=== PATIENT | male | born 1960 | race Two or more races ===

== ENCOUNTER 2016-11-07 22:09 | Emergency (ER) | payer MEDICARE, MEDICAID ==
[~2016-11-07] VITALS: Ht 172.7 cm; Wt 78.5 kg
[~2016-11-07 22:09] MED LIST: CALC667C PO; DOCU-94 PO; FOSI20TA PO; INSLANTI SC; METH500T6 PO; METO-158 PO; METO10TA3 PO; MULT-397 OR; OMEP20CA5 PO; TRAZ50TA2 PO; [UNRECOGNIZED DRUG - CODE] PO
[2016-11-07 22:15] VITALS: BP 173/63
[2016-11-07 23:09] LABS: Basophils # (auto) 0.1 uL; Basophils % (auto) 0.7 % (0.0-2.0); Eosinophils # (auto) 0.2 uL; Eosinophils % (auto) 2.6 % (0.0-7.0); Hematocrit 32.9 % (41.0-53.0); Hemoglobin 11.2 g/dL (13.5-17.5); Lymphocytes # (auto) 1.5 uL; Lymphocytes % (auto) 17.4 % (10.0-50.0); Mean Corpuscular Hemoglobin 31.2 pg (28.0-32.0); Mean Corpuscular Hgb Conc. 34.2 g/dL (32.0-36.0); Mean Corpuscular Volume 91.2 fL (80.0-100.0); Mean Platelet Volume 7.4 fL (7.4-10.4); Monocytes # (auto) 0.6 uL; Neutrophils # (auto) 6.1 uL; Neutrophils % (auto) 72.3 % (37.0-80.0); Platelet Count (auto) 246 10^3/uL (140-450); Red Cell Distribution Width 14.5 % (11.6-16.0); White Blood Cell 8.4 10^3/uL (4.4-10.8)
[2016-11-07 23:39] LABS: Albumin 3.7 g/dL (3.4-5.0); BUN/Creatinine Ratio 6.8; Bilirubin, Total 0.5 mg/dL (0.2-1.0); Calcium 8.5 mg/dL (8.5-10.1); Potassium 3.9 mmol/L (3.5-5.1); Total Protein 8.1 g/dL (6.4-8.2)
== END 2016-11-08 02:45 | disposition left against medical advice (07) ==
LOC: ER 22:16
DX: M79.602 Pain in left arm (principal); Z53.21 Procedure and treatment not carried out due to patient leaving prior to being seen by health care provider
CPT/HCPCS: 36415; 80053; 85025; 93971

== ENCOUNTER 2017-07-30 07:41 | Inpatient (IN) | payer MEDICARE, MEDICAID, OTHER ==
[~2017-07-30] VITALS: Ht 160 cm; Wt 104.8 kg
[~2017-07-30 07:41] MED LIST changes: +ASPI-231 PO; +B-COCAP23 PO; +CLON0.3T PO; +DOCU250C3 PO; +FOSI40TA2 PO; +OME20T PO; -OMEP20CA5 PO; +OMEP20CA74 PO; +[UNRECOGNIZED DRUG - CODE] PO
[2017-07-30 08:51] LABS: Basophils # (auto) 0.1 uL; Basophils % (auto) 0.6 % (0.0-2.0); Eosinophils # (auto) 0.1 uL; Eosinophils % (auto) 1.1 % (0.0-7.0); Hematocrit 34.7 % (41.0-53.0); Hemoglobin 11.5 g/dL (13.5-17.5); Lymphocytes % (auto) 7.5 % (10.0-50.0); Mean Corpuscular Hemoglobin 30.3 pg (28.0-32.0); Mean Corpuscular Hgb Conc. 33.2 g/dL (32.0-36.0); Mean Corpuscular Volume 91.2 fL (80.0-100.0); Monocytes # (auto) 0.7 uL; Monocytes % (auto) 5.1 % (0.0-12.0); Neutrophils # (auto) 10.9 uL; Neutrophils % (auto) 85.7 % (37.0-80.0); Nucleated Red Blood Cells % 0.1 %; Platelet Count (auto) 257 10^3/uL (140-450); Red Blood Cells 3.81 10^6/uL (4.5-5.90); Red Cell Distribution Width 15.7 % (11.8-14.3); White Blood Cell 12.8 10^3/uL (4.4-10.8)
[2017-07-30 09:02] LABS: Albumin 3.6 g/dL (3.4-5.0); Bilirubin, Total 0.6 mg/dL (0.2-1.0); Calcium 9.5 mg/dL (8.5-10.1); Magnesium 2.1 mg/dL (1.6-2.6); Potassium 3.6 mmol/L (3.5-5.1); Total Protein 9.2 g/dL (6.4-8.2)
[2017-07-30 09:24] LABS: BUN/Creatinine Ratio 5.4
[2017-07-30] MEDS ORDERED: SODIUM CHLORIDE 0.9% 1,000 ML IVB ONE (11:53)
[2017-07-30] MEDS ORDERED: ONDANSETRON HCL 4 MG/2 ML VIAL IV ONE (12:00)
[2017-07-30 12:35] LABS: Amylase 41 U/L (25-115); Lipase 118 U/L (73-393)
[2017-07-30 12:41] LABS: INR 1.1 (0.9-1.15); Partial Thromboplastin Time 27.8 sec (22.64-33.71)
[2017-07-30] MEDS ORDERED: hydrALAZINE HCL 20 MG/ML VL IV ONE (12:45)
[2017-07-30] MEDS ORDERED: PROMETHAZINE HCL 25 MG/ML 1ML IV PRN (15:00)
[2017-07-30] MEDS ORDERED: PANTOPRAZOLE 40 MG/10 ML VIAL IV ONE (15:00)
[2017-07-30] MEDS ORDERED: LACTULOSE 20Gm/30ML SOLN PO PRN (15:00)
[2017-07-30] MEDS ORDERED: DOCUSATE SOD 100 MG CAP PO PRN (15:00)
[2017-07-30] MEDS ORDERED: LORazepam 2MG/ML-1ML VIAL IV PRN (15:00)
[2017-07-30] MEDS ORDERED: MORPHINE SULFATE 4 MG/ML SYR/VIAL IV PRN (15:00)
[2017-07-30] MEDS ORDERED: MORPHINE SULF INJ 2 MG/ML SYRINGE 1ML IV PRN (15:00)
[2017-07-30] MEDS ORDERED: MORPHINE SULFATE 10 MG/ML INJ 1ML SDV IV PRN (15:00)
[2017-07-30] MEDS ORDERED: NITROGLYCERIN 0.4 MG SL TAB SL PRN (15:00)
[2017-07-30] MEDS ORDERED: METOPROLOL TARTRATE 25 MG TAB PO ONE (15:45)
[2017-07-30] MEDS ORDERED: cloNIDine HCL 0.1 MG TAB PO ONE (15:45)
[2017-07-30] MEDS ORDERED: NITROGLYCERIN 0.2MG/HR TOPICAL PATCH TD ONE (16:00)
[2017-07-30] MEDS ORDERED: FUROSEMIDE 40 MG/4 ML VIAL IV ONE (16:00)
[2017-07-30] MEDS ORDERED: ASPirin-EC 81 mg tab PO ONE (16:00)
[2017-07-30] MEDS: ACCU-CHEK COMFORT CURVE STRIP VI SCH ×3 (16:05→23:52)
[2017-07-30] MEDS ORDERED: FOSINOPRIL SODIUM 10 MG TAB PO ONE (16:15)
[2017-07-30] MEDS: InsuLIN REG 1unit/0.01ml Soln (100units/ml) SC SCH ×3 (16:22→23:52)
[2017-07-30] MEDS ORDERED: INSULIN LANTUS (GLARGINE) 1 /0.01ml (100units/ml) SC ONE (16:30)
[2017-07-30] MEDS: HYDROcodone-ACET 5/325MG TAB PO PRN (17:21)
[2017-07-30 18:34] VITALS: BP 139/73
[2017-07-30] MEDS ORDERED: INFLUENZA QUAD 2017-2018 0.5 ML SYRG IM ONE (18:45)
[2017-07-30 22:00] VITALS: BP 161/87
[2017-07-30] MEDS: DOCUSATE CALCIUM 240 MG CAP PO SCH (22:00)
[2017-07-30] MEDS: METOPROLOL TARTRATE 50 MG TAB PO SCH (22:00)
[2017-07-30] MEDS: traZODone HCL 50 MG TAB PO SCH (22:14)
[2017-07-30] MEDS: CALCIUM ACETATE 667 MG CAP PO SCH (22:14)
[2017-07-30] MEDS: cloNIDine HCL 0.1 MG TAB PO SCH (22:14)
[2017-07-30] MEDS: FOSINOPRIL SODIUM 10 MG TAB PO SCH (22:14)
[2017-07-30] MEDS: METOCLOPRAMIDE HCL 10 MG TAB PO SCH (22:15)
[2017-07-30] MEDS: DEXTROSE (50%) 50ML SYRG IV PRN (23:20)
[2017-07-31] MEDS: ACCU-CHEK COMFORT CURVE STRIP VI SCH ×5 (03:55→21:34)
[2017-07-31] MEDS: InsuLIN REG 1unit/0.01ml Soln (100units/ml) SC SCH ×5 (03:55→21:34)
[2017-07-31] MEDS: DEXTROSE (50%) 50ML SYRG IV PRN ×2 (04:00→08:27)
[2017-07-31 05:00] VITALS: BP 94/47
[2017-07-31] MEDS: CALCIUM ACETATE 667 MG CAP PO SCH ×3 (05:56→21:29)
[2017-07-31] MEDS: METOCLOPRAMIDE HCL 10 MG TAB PO SCH ×3 (05:57→21:29)
[2017-07-31] MEDS ORDERED: D5W/SOD CHLO 0.9% 1,000 ML IV SCH (06:00)
[2017-07-31 06:20] LABS: Basophils # (auto) 0 uL; Basophils % (auto) 0.5 % (0.0-2.0); Eosinophils # (auto) 0.1 uL; Eosinophils % (auto) 1.1 % (0.0-7.0); Hemoglobin 9.5 g/dL (13.5-17.5); Lymphocytes # (auto) 0.9 uL; Lymphocytes % (auto) 9.4 % (10.0-50.0); Mean Corpuscular Hemoglobin 30.4 pg (28.0-32.0); Mean Corpuscular Hgb Conc. 33.7 g/dL (32.0-36.0); Mean Corpuscular Volume 90.3 fL (80.0-100.0); Monocytes # (auto) 0.6 uL; Monocytes % (auto) 6.9 % (0.0-12.0); Neutrophils # (auto) 7.5 uL; Neutrophils % (auto) 82.1 % (37.0-80.0); Platelet Count (auto) 219 10^3/uL (140-450); Red Cell Distribution Width 15.6 % (11.8-14.3); White Blood Cell 9.1 10^3/uL (4.4-10.8)
[2017-07-31 07:11] LABS: Albumin 2.8 g/dL (3.4-5.0); BUN/Creatinine Ratio 5.5; Bilirubin, Total 0.4 mg/dL (0.2-1.0); Calcium 8.6 mg/dL (8.5-10.1); Total Protein 7.3 g/dL (6.4-8.2)
[2017-07-31 07:14] LABS: Potassium 2.8 mmol/L (3.5-5.1)
[2017-07-31 09:00] VITALS: BP 152/72
[2017-07-31] MEDS: HYDROcodone-ACET 5/325MG TAB PO PRN ×3 (09:12→22:16)
[2017-07-31] MEDS: DOCUSATE CALCIUM 240 MG CAP PO SCH ×2 (09:14→21:29)
[2017-07-31] MEDS: ASPirin-EC 81 mg tab PO SCH (09:14)
[2017-07-31] MEDS: FUROSEMIDE 40 MG/4 ML VIAL IV SCH (09:14)
[2017-07-31] MEDS: ENOXAPARIN SOD 30 MG/0.3 ML SYRINGE SC SCH (09:15)
[2017-07-31] MEDS: NITROGLYCERIN 0.2MG/HR TOPICAL PATCH TD SCH (09:15)
[2017-07-31] MEDS: INSULIN LANTUS (GLARGINE) 1 /0.01ml (100units/ml) SC SCH (10:00)
[2017-07-31] MEDS: FOSINOPRIL SODIUM 10 MG TAB PO SCH ×2 (10:00→21:41)
[2017-07-31] MEDS ORDERED: ENALAPRIL MALEATE 10 MG TAB PO SCH (10:00)
[2017-07-31] MEDS: METOPROLOL TARTRATE 50 MG TAB PO SCH ×2 (10:00→22:00)
[2017-07-31] MEDS ORDERED: PANTOPRAZOLE 40 MG/10 ML VIAL IV SCH (10:00)
[2017-07-31] MEDS: cloNIDine HCL 0.1 MG TAB PO SCH ×2 (10:00→21:30)
[2017-07-31] MEDS ORDERED: POTASSIUM CHLORIDE 40 MEQ, LIDOCAINE 1% (LOCAL ANESTH.) 4 ML in SODIUM CHL 0.9% 100 ML IV ONE (11:15)
[2017-07-31] MEDS: Boost Glucose Control 8 Ounces PO SCH ×2 (12:00→18:09)
[2017-07-31 13:00] VITALS: BP 131/77
[2017-07-31 17:00] VITALS: BP 133/64
[2017-07-31 17:25] LABS: BUN/Creatinine Ratio 5.4; Calcium 8.5 mg/dL (8.5-10.1); Potassium 4.1 mmol/L (3.5-5.1)
[2017-07-31] MEDS: PANTOPRAZOLE 40 MG TAB PO SCH (21:29)
[2017-07-31] MEDS: traZODone HCL 50 MG TAB PO SCH (21:29)
[2017-07-31 22:00] VITALS: BP 140/70
[2017-08-01] MEDS: ACCU-CHEK COMFORT CURVE STRIP VI SCH ×6 (00:54→20:55)
[2017-08-01] MEDS: HYDROcodone-ACET 5/325MG TAB PO PRN ×2 (02:48→21:57)
[2017-08-01] MEDS: InsuLIN REG 1unit/0.01ml Soln (100units/ml) SC SCH ×6 (04:00→20:56)
[2017-08-01 05:00] VITALS: BP 140/71
[2017-08-01] MEDS ORDERED: MORPHINE SULF INJ 2 MG/ML SYRINGE 1ML ONE (05:27)
[2017-08-01 05:50] LABS: Basophils # (auto) 0.1 uL; Basophils % (auto) 1.1 % (0.0-2.0); Eosinophils # (auto) 0.4 uL; Eosinophils % (auto) 3.8 % (0.0-7.0); Hemoglobin 9.9 g/dL (13.5-17.5); Lymphocytes # (auto) 1.1 uL; Lymphocytes % (auto) 11.9 % (10.0-50.0); Mean Corpuscular Hemoglobin 31.1 pg (28.0-32.0); Mean Corpuscular Hgb Conc. 34.2 g/dL (32.0-36.0); Mean Corpuscular Volume 90.9 fL (80.0-100.0); Monocytes # (auto) 0.8 uL; Monocytes % (auto) 8.8 % (0.0-12.0); Neutrophils # (auto) 6.9 uL; Neutrophils % (auto) 74.4 % (37.0-80.0); Platelet Count (auto) 239 10^3/uL (140-450); Red Blood Cells 3.19 10^6/uL (4.5-5.90); Red Cell Distribution Width 15.8 % (11.8-14.3); White Blood Cell 9.2 10^3/uL (4.4-10.8)
[2017-08-01] MEDS: METOCLOPRAMIDE HCL 10 MG TAB PO SCH ×3 (06:07→20:54)
[2017-08-01] MEDS: CALCIUM ACETATE 667 MG CAP PO SCH ×3 (06:07→21:42)
[2017-08-01 06:33] LABS: Albumin 2.9 g/dL (3.4-5.0); BUN/Creatinine Ratio 5.4; Bilirubin, Total 0.5 mg/dL (0.2-1.0); Calcium 8.4 mg/dL (8.5-10.1); Potassium 4.1 mmol/L (3.5-5.1); Total Protein 7.7 g/dL (6.4-8.2)
[2017-08-01] MEDS: Boost Glucose Control 8 Ounces PO SCH ×3 (08:00→18:00)
[2017-08-01 09:00] VITALS: BP 139/67
[2017-08-01] MEDS: cloNIDine HCL 0.1 MG TAB PO SCH ×2 (10:00→20:52)
[2017-08-01] MEDS: FOSINOPRIL SODIUM 10 MG TAB PO SCH ×2 (10:00→21:23)
[2017-08-01] MEDS: FUROSEMIDE 40 MG/4 ML VIAL IV SCH (10:00)
[2017-08-01] MEDS: ENOXAPARIN SOD 30 MG/0.3 ML SYRINGE SC SCH (10:00)
[2017-08-01] MEDS: METOPROLOL TARTRATE 50 MG TAB PO SCH ×2 (10:00→20:54)
[2017-08-01] MEDS: ASPirin-EC 81 mg tab PO SCH (10:00)
[2017-08-01] MEDS: NITROGLYCERIN 0.2MG/HR TOPICAL PATCH TD SCH (10:00)
[2017-08-01] MEDS: PANTOPRAZOLE 40 MG TAB PO SCH ×2 (10:00→21:25)
[2017-08-01] MEDS: DOCUSATE CALCIUM 240 MG CAP PO SCH ×3 (10:00→20:54)
[2017-08-01] MEDS: INSULIN LANTUS (GLARGINE) 1 /0.01ml (100units/ml) SC SCH (10:00)
[2017-08-01] MEDS ORDERED: ADENOSINE 87 MG in GIVE UN-DILUTED 0 ML IV ONE (11:15)
[2017-08-01 12:24] VITALS: BP 140/94
[2017-08-01] MEDS ORDERED: ONDANSETRON HCL 4 MG/2 ML VIAL ONE (13:02)
[2017-08-01] MEDS ORDERED: diphenhdrAMINE HCL 50 MG/1 ML VL IV ONE (16:15)
[2017-08-01 17:00] VITALS: BP 170/85
[2017-08-01] MEDS ORDERED: LACTULOSE 20Gm/30ML SOLN PO PRN (17:30)
[2017-08-01] MEDS: traZODone HCL 50 MG TAB PO SCH (20:54)
[2017-08-01 22:00] VITALS: BP 149/73
[2017-08-02] MEDS: ACCU-CHEK COMFORT CURVE STRIP VI SCH ×6 (02:39→20:00)
[2017-08-02] MEDS: InsuLIN REG 1unit/0.01ml Soln (100units/ml) SC SCH ×6 (04:00→20:00)
[2017-08-02 05:00] VITALS: BP 174/77
[2017-08-02] MEDS: CALCIUM ACETATE 667 MG CAP PO SCH ×3 (05:41→21:49)
[2017-08-02] MEDS: METOCLOPRAMIDE HCL 10 MG TAB PO SCH ×3 (05:41→21:50)
[2017-08-02 07:15] LABS: Basophils # (auto) 0.1 uL; Basophils % (auto) 1.1 % (0.0-2.0); Eosinophils # (auto) 0.2 uL; Eosinophils % (auto) 2.1 % (0.0-7.0); Hemoglobin 10.5 g/dL (13.5-17.5); Lymphocytes # (auto) 0.8 uL; Lymphocytes % (auto) 8.1 % (10.0-50.0); Mean Corpuscular Hemoglobin 30.2 pg (28.0-32.0); Mean Corpuscular Hgb Conc. 32.9 g/dL (32.0-36.0); Mean Corpuscular Volume 91.6 fL (80.0-100.0); Monocytes # (auto) 0.7 uL; Monocytes % (auto) 7.5 % (0.0-12.0); Neutrophils # (auto) 7.9 uL; Neutrophils % (auto) 81.2 % (37.0-80.0); Nucleated Red Blood Cells % 0.1 %; Platelet Count (auto) 297 10^3/uL (140-450); Red Cell Distribution Width 15.8 % (11.8-14.3); White Blood Cell 9.7 10^3/uL (4.4-10.8)
[2017-08-02 07:36] LABS: Albumin 3.3 g/dL (3.4-5.0); BUN/Creatinine Ratio 4.7; Bilirubin, Total 0.7 mg/dL (0.2-1.0); Calcium 8.6 mg/dL (8.5-10.1); Potassium 4.7 mmol/L (3.5-5.1); Total Protein 8.7 g/dL (6.4-8.2)
[2017-08-02 08:00] VITALS: BP 135/95
[2017-08-02] MEDS: Boost Glucose Control 8 Ounces PO SCH ×3 (09:36→18:00)
[2017-08-02] MEDS: FOSINOPRIL SODIUM 10 MG TAB PO SCH ×2 (09:38→21:49)
[2017-08-02] MEDS: FUROSEMIDE 40 MG/4 ML VIAL IV SCH (09:39)
[2017-08-02] MEDS: DOCUSATE CALCIUM 240 MG CAP PO SCH (09:39)
[2017-08-02] MEDS: METOPROLOL TARTRATE 50 MG TAB PO SCH ×2 (09:40→21:48)
[2017-08-02] MEDS: cloNIDine HCL 0.1 MG TAB PO SCH ×2 (09:40→21:47)
[2017-08-02] MEDS: PANTOPRAZOLE 40 MG TAB PO SCH ×2 (09:40→21:50)
[2017-08-02] MEDS: NITROGLYCERIN 0.2MG/HR TOPICAL PATCH TD SCH (09:41)
[2017-08-02] MEDS: ENOXAPARIN SOD 30 MG/0.3 ML SYRINGE SC SCH (09:41)
[2017-08-02] MEDS: ASPirin-EC 81 mg tab PO SCH (09:41)
[2017-08-02] MEDS: HYDROcodone-ACET 5/325MG TAB PO PRN ×2 (09:58→20:00)
[2017-08-02] MEDS: INSULIN LANTUS (GLARGINE) 1 /0.01ml (100units/ml) SC SCH (10:03)
[2017-08-02 12:40] VITALS: BP 136/79
[2017-08-02] MEDS ORDERED: SODIUM CHLORIDE LOCK 10 ML ONE (13:26)
[2017-08-02] MEDS ORDERED: LIDOCAINE VISCOUS 2% 15ML UD ONE (13:26)
[2017-08-02] MEDS ORDERED: diphenhdrAMINE HCL 50 MG/1 ML VL ONE (13:26)
[2017-08-02] MEDS ORDERED: MIDAZOLAM HCL 5 MG/ML-1ML VIAL ONE (13:26)
[2017-08-02] MEDS ORDERED: fentaNYL CITRATE 100 MCG/2 ML VL ONE (13:27)
[2017-08-02] MEDS ORDERED: LACTULOSE 20Gm/30ML SOLN PO PRN (14:00)
[2017-08-02 20:00] VITALS: BP 168/87
[2017-08-02] MEDS: traZODone HCL 50 MG TAB PO SCH (21:48)
[2017-08-02 21:58] VITALS: BP 168/87
[2017-08-03] VITALS (8 sets, daily range): BP systolic 137–196; BP diastolic 77–97
[2017-08-03] MEDS: HYDROcodone-ACET 5/325MG TAB PO PRN ×3 (00:29→19:52)
[2017-08-03] MEDS: ACCU-CHEK COMFORT CURVE STRIP VI SCH ×7 (00:29→23:42)
[2017-08-03] MEDS: InsuLIN REG 1unit/0.01ml Soln (100units/ml) SC SCH ×7 (04:00→23:43)
[2017-08-03] MEDS: METOCLOPRAMIDE HCL 10 MG TAB PO SCH ×3 (05:41→22:21)
[2017-08-03] MEDS: CALCIUM ACETATE 667 MG CAP PO SCH ×3 (05:41→22:20)
[2017-08-03 07:13] LABS: Basophils # (auto) 0.1 uL; Eosinophils # (auto) 0.2 uL; Eosinophils % (auto) 3.4 % (0.0-7.0); Hemoglobin 10.3 g/dL (13.5-17.5); Lymphocytes # (auto) 1.4 uL; Lymphocytes % (auto) 19.8 % (10.0-50.0); Mean Corpuscular Hemoglobin 30.1 pg (28.0-32.0); Mean Corpuscular Hgb Conc. 33.3 g/dL (32.0-36.0); Mean Corpuscular Volume 90.6 fL (80.0-100.0); Monocytes # (auto) 0.7 uL; Monocytes % (auto) 10.3 % (0.0-12.0); Neutrophils # (auto) 4.7 uL; Neutrophils % (auto) 65.5 % (37.0-80.0); Platelet Count (auto) 315 10^3/uL (140-450); Red Blood Cells 3.42 10^6/uL (4.5-5.90); Red Cell Distribution Width 15.8 % (11.8-14.3); White Blood Cell 7.2 10^3/uL (4.4-10.8)
[2017-08-03 07:42] LABS: Albumin 3.1 g/dL (3.4-5.0); BUN/Creatinine Ratio 5.3; Bilirubin, Total 0.6 mg/dL (0.2-1.0); Calcium 9.2 mg/dL (8.5-10.1); Potassium 4.4 mmol/L (3.5-5.1); Total Protein 8.3 g/dL (6.4-8.2)
[2017-08-03] MEDS: Boost Glucose Control 8 Ounces PO SCH ×2 (09:11→13:07)
[2017-08-03] MEDS: PANTOPRAZOLE 40 MG TAB PO SCH ×2 (09:21→22:20)
[2017-08-03] MEDS: ASPirin-EC 81 mg tab PO SCH (09:21)
[2017-08-03] MEDS: FUROSEMIDE 40 MG/4 ML VIAL IV SCH (09:21)
[2017-08-03] MEDS: INSULIN LANTUS (GLARGINE) 1 /0.01ml (100units/ml) SC SCH (09:23)
[2017-08-03] MEDS: ENOXAPARIN SOD 30 MG/0.3 ML SYRINGE SC SCH (09:28)
[2017-08-03] MEDS: FOSINOPRIL SODIUM 10 MG TAB PO SCH ×3 (09:28→22:20)
[2017-08-03] MEDS: METOPROLOL TARTRATE 50 MG TAB PO SCH ×3 (09:28→22:20)
[2017-08-03] MEDS: cloNIDine HCL 0.1 MG TAB PO SCH ×3 (09:29→22:19)
[2017-08-03] MEDS: DOCUSATE CALCIUM 240 MG CAP PO SCH ×2 (09:29→22:21)
[2017-08-03] MEDS ORDERED: EPOETIN ALFA 10,000 UNIT/1 ML VIAL IV ONE (09:45)
[2017-08-03] MEDS: NITROGLYCERIN 0.2MG/HR TOPICAL PATCH TD SCH (10:00)
[2017-08-03] MEDS ORDERED: diphenhdrAMINE HCL 50 MG/1 ML VL IV ONE (10:15)
[2017-08-03] MEDS: NIFEdipine ER 30 MG TAB PO SCH (16:06)
[2017-08-03] MEDS ORDERED: MORPHINE SULFATE 4 MG/ML SYR/VIAL IV PRN (20:15)
[2017-08-03] MEDS: traZODone HCL 50 MG TAB PO SCH (22:19)
[2017-08-04] MEDS: InsuLIN REG 1unit/0.01ml Soln (100units/ml) SC SCH ×3 (03:59→11:38)
[2017-08-04] MEDS: ACCU-CHEK COMFORT CURVE STRIP VI SCH ×3 (04:00→11:38)
[2017-08-04 05:00] VITALS: BP 133/68
[2017-08-04] MEDS: CALCIUM ACETATE 667 MG CAP PO SCH (05:41)
[2017-08-04] MEDS: METOCLOPRAMIDE HCL 10 MG TAB PO SCH (05:41)
[2017-08-04 06:22] LABS: Basophils # (auto) 0.2 uL; Basophils % (auto) 2.9 % (0.0-2.0); Eosinophils # (auto) 0.3 uL; Eosinophils % (auto) 3.9 % (0.0-7.0); Hematocrit 30.2 % (41.0-53.0); Lymphocytes % (auto) 14.3 % (10.0-50.0); Mean Corpuscular Hemoglobin 30.1 pg (28.0-32.0); Mean Corpuscular Hgb Conc. 33.1 g/dL (32.0-36.0); Mean Corpuscular Volume 90.9 fL (80.0-100.0); Monocytes # (auto) 0.6 uL; Monocytes % (auto) 8.7 % (0.0-12.0); Neutrophils % (auto) 70.2 % (37.0-80.0); Platelet Count (auto) 295 10^3/uL (140-450); Red Blood Cells 3.32 10^6/uL (4.5-5.90); Red Cell Distribution Width 15.8 % (11.8-14.3); White Blood Cell 7.1 10^3/uL (4.4-10.8)
[2017-08-04 06:39] LABS: BUN/Creatinine Ratio 5.5; Calcium 8.4 mg/dL (8.5-10.1); Potassium 4.3 mmol/L (3.5-5.1)
[2017-08-04 08:00] VITALS: BP 154/78
[2017-08-04] MEDS ORDERED: NIF30XLT PO (08:38)
[2017-08-04 09:00] VITALS: BP 154/78
[2017-08-04] MEDS: DOCUSATE CALCIUM 240 MG CAP PO SCH (09:40)
[2017-08-04] MEDS: METOPROLOL TARTRATE 50 MG TAB PO SCH (09:40)
[2017-08-04] MEDS: NIFEdipine ER 30 MG TAB PO SCH (09:41)
[2017-08-04] MEDS: cloNIDine HCL 0.1 MG TAB PO SCH (09:42)
[2017-08-04] MEDS: ENOXAPARIN SOD 30 MG/0.3 ML SYRINGE SC SCH (09:42)
[2017-08-04] MEDS: ASPirin-EC 81 mg tab PO SCH (09:42)
[2017-08-04] MEDS: PANTOPRAZOLE 40 MG TAB PO SCH (09:42)
[2017-08-04] MEDS: FOSINOPRIL SODIUM 10 MG TAB PO SCH (09:43)
[2017-08-04] MEDS: INSULIN LANTUS (GLARGINE) 1 /0.01ml (100units/ml) SC SCH (09:48)
[2017-08-04] MEDS: NITROGLYCERIN 0.2MG/HR TOPICAL PATCH TD SCH (10:00)
[2017-08-04 10:23] VITALS: BP 154/78
[2017-08-04 10:46] VITALS: BP 154/78
[2017-08-04] MEDS: FUROSEMIDE 40 MG/4 ML VIAL IV SCH (11:07)
[2017-08-04 12:00] VITALS: BP 155/71
== END 2017-08-04 12:40 | disposition home health service (06) | DRG 291 ==
LOC: EDBD 07:41 → ER 07:41 → TELE-WESTW 07:42
PROVIDERS: ADMIT Internal Medicine; ATTEND Internal Medicine
PROC: 5A1D70Z Performance of Urinary Filtration, Intermittent, Less than 6 Hours Per Day (ICD-10-PCS; 2017-08-01)
PROC: 0DB68ZX Excision of Stomach, Via Natural or Artificial Opening Endoscopic, Diagnostic (ICD-10-PCS; principal; 2017-08-02 13:32)
PROC: 5A1D70Z Performance of Urinary Filtration, Intermittent, Less than 6 Hours Per Day (ICD-10-PCS; 2017-08-03)
DX: I13.2 Hypertensive heart and chronic kidney disease with heart failure and with stage 5 chronic kidney disease, or end stage renal disease (principal); N18.6 End stage renal disease; E11.21 Type 2 diabetes mellitus with diabetic nephropathy; E44.0 Moderate protein-calorie malnutrition; E11.65 Type 2 diabetes mellitus with hyperglycemia; I50.43 Acute on chronic combined systolic (congestive) and diastolic (congestive) heart failure; E87.1 Hypo-osmolality and hyponatremia; Z68.41 Body mass index [BMI] 40.0-44.9, adult; K29.70 Gastritis, unspecified, without bleeding; K59.00 Constipation, unspecified; E11.22 Type 2 diabetes mellitus with diabetic chronic kidney disease; E87.6 Hypokalemia; D63.1 Anemia in chronic kidney disease; E78.5 Hyperlipidemia, unspecified; F32.9 Major depressive disorder, single episode, unspecified; E66.9 Obesity, unspecified; R74.8 Abnormal levels of other serum enzymes; F41.9 Anxiety disorder, unspecified; I50.9 Heart failure, unspecified; M19.90 Unspecified osteoarthritis, unspecified site; I16.0 Hypertensive urgency; D72.829 Elevated white blood cell count, unspecified; I70.8 Atherosclerosis of other arteries; K57.30 Diverticulosis of large intestine without perforation or abscess without bleeding; Z80.1 Family history of malignant neoplasm of trachea, bronchus and lung; Z82.49 Family history of ischemic heart disease and other diseases of the circulatory system; Z83.3 Family history of diabetes mellitus; Z90.49 Acquired absence of other specified parts of digestive tract; Z91.81 History of falling; Z99.2 Dependence on renal dialysis; Z88.2 Allergy status to sulfonamides; Z88.8 Allergy status to other drugs, medicaments and biological substances; Z79.82 Long term (current) use of aspirin; Z79.899 Other long term (current) drug therapy; Z79.4 Long term (current) use of insulin
CPT/HCPCS: 36415; 43239; 71045; 74176; 80048; 80053; 80061; 82150; 82550; 82962; 83036; 83690; 83735; 83880; 84443; 84484; 85025; 85610; 85652; 85730; 86141; 87081; 90935; 93005; 93017; 93926; 94761; 96361; 96372; 96374; 96375; C9113; J0153; J0885; J1815; J2001; J2250; J2405; J7042

== ENCOUNTER 2017-09-11 02:20 | Inpatient (IN) | payer MEDICARE, MEDICAID, OTHER ==
[2017-09-10 22:00] VITALS: BP 136/68
[~2017-09-11] VITALS: Ht 177.8 cm; Wt 101.0 kg
[~2017-09-11 02:20] MED LIST changes: +NIF30XLT PO
[2017-09-11] MEDS ORDERED: ENALAPRILAT 1.25 MG/ML-1ML VIAL IV ONE ×2 (02:33→03:00)
[2017-09-11 04:34] LABS: Basophils # (auto) 0.1 uL; Basophils % (auto) 0.9 % (0.0-2.0); Eosinophils # (auto) 0 uL; Eosinophils % (auto) 0.4 % (0.0-7.0); Hematocrit 32.6 % (41.0-53.0); Hemoglobin 10.8 g/dL (13.5-17.5); Lymphocytes # (auto) 0.3 uL; Lymphocytes % (auto) 3.8 % (10.0-50.0); Mean Corpuscular Hemoglobin 29.5 pg (28.0-32.0); Mean Corpuscular Hgb Conc. 33.2 g/dL (32.0-36.0); Monocytes # (auto) 0.7 uL; Monocytes % (auto) 8.5 % (0.0-12.0); Neutrophils # (auto) 7.4 uL; Neutrophils % (auto) 86.4 % (37.0-80.0); Platelet Count (auto) 193 10^3/uL (140-450); Red Blood Cells 3.66 10^6/uL (4.5-5.90); Red Cell Distribution Width 16.8 % (11.8-14.3); White Blood Cell 8.5 10^3/uL (4.4-10.8)
[2017-09-11 04:54] LABS: INR 1.22 (0.9-1.15); Partial Thromboplastin Time 28.6 sec (22.64-33.71); Prothrombin Time 13.3 sec (9.37-12.3)
[2017-09-11 05:12] LABS: Albumin 3.4 g/dL (3.4-5.0); BUN/Creatinine Ratio 5.7; Bilirubin, Total 0.8 mg/dL (0.2-1.0); Calcium 8.8 mg/dL (8.5-10.1); Potassium 4.2 mmol/L (3.5-5.1); Total Protein 8.7 g/dL (6.4-8.2)
[2017-09-11] MEDS ORDERED: ACETAMINOPHEN 325 MG TAB PO PRN (05:30)
[2017-09-11] MEDS ORDERED: NITROGLYCERIN 0.4 MG SL TAB SL PRN (05:30)
[2017-09-11] MEDS ORDERED: MORPHINE SULFATE 4 MG/ML SYR/VIAL IV PRN (05:30)
[2017-09-11] MEDS ORDERED: DEXTROSE (50%) 50ML SYRG IV PRN (05:30)
[2017-09-11] MEDS: InsuLIN REG 1unit/0.01ml Soln (100units/ml) SC SCH ×4 (06:00→23:56)
[2017-09-11] MEDS: ACCU-CHEK COMFORT CURVE STRIP VI SCH ×4 (06:00→23:57)
[2017-09-11] MEDS: CALCIUM ACETATE 667 MG CAP PO SCH ×3 (08:00→18:56)
[2017-09-11] MEDS ORDERED: HEPARIN SODIUM (PORCINE) 5000 UNITS/ML 1ML VIAL ONE ×2 (09:26)
[2017-09-11] MEDS ORDERED: EPOETIN ALFA 10,000 UNIT/1 ML VIAL IV ONE (09:30)
[2017-09-11] MEDS: METOPROLOL TARTRATE 50 MG TAB PO SCH ×2 (10:00→21:18)
[2017-09-11] MEDS: NIFEdipine ER 30 MG TAB PO SCH (10:00)
[2017-09-11] MEDS: cloNIDine HCL 0.1 MG TAB PO SCH ×2 (10:00→21:19)
[2017-09-11] MEDS: PANTOPRAZOLE 40 MG TAB PO SCH (10:00)
[2017-09-11] MEDS: B-COMPLEX W/ C & FOLIC ACID(NEPHROVITE TAB) PO SCH (10:00)
[2017-09-11] MEDS: HEPARIN SODIUM (PORCINE) 5000 UNITS/ML 1ML VIAL SC SCH ×2 (10:00→21:19)
[2017-09-11 11:00] VITALS: BP 111/67
[2017-09-11 11:05] VITALS: BP 111/67
[2017-09-11 12:22] VITALS: BP 118/69
[2017-09-11] MEDS: HYDROcodone-ACET 5/325MG TAB PO PRN (17:23)
[2017-09-11] MEDS ORDERED: INFLUENZA QUAD 2017-2018 0.5 ML SYRG IM ONE (19:30)
[2017-09-11 22:00] VITALS: BP 136/68
[2017-09-12] VITALS (7 sets, daily range): BP systolic 117–146; BP diastolic 69–85
[2017-09-12] MEDS: HYDROcodone-ACET 5/325MG TAB PO PRN ×3 (01:30→19:08)
[2017-09-12 05:39] LABS: Basophils # (auto) 0.1 uL; Basophils % (auto) 1.1 % (0.0-2.0); Eosinophils # (auto) 0.1 uL; Eosinophils % (auto) 1.2 % (0.0-7.0); Hemoglobin 10.2 g/dL (13.5-17.5); Lymphocytes # (auto) 0.8 uL; Lymphocytes % (auto) 14.5 % (10.0-50.0); Mean Corpuscular Hemoglobin 30.2 pg (28.0-32.0); Monocytes # (auto) 0.5 uL; Monocytes % (auto) 9.4 % (0.0-12.0); Neutrophils # (auto) 4.1 uL; Neutrophils % (auto) 73.8 % (37.0-80.0); Platelet Count (auto) 181 10^3/uL (140-450); Red Blood Cells 3.37 10^6/uL (4.5-5.90); Red Cell Distribution Width 17.3 % (11.8-14.3); White Blood Cell 5.5 10^3/uL (4.4-10.8)
[2017-09-12 05:58] LABS: Calcium 8.6 mg/dL (8.5-10.1); Potassium 3.6 mmol/L (3.5-5.1)
[2017-09-12] MEDS: InsuLIN REG 1unit/0.01ml Soln (100units/ml) SC SCH ×4 (06:00→23:57)
[2017-09-12 06:02] LABS: Albumin 3.1 g/dL (3.4-5.0); BUN/Creatinine Ratio 5.1
[2017-09-12 06:04] LABS: Bilirubin, Total 0.7 mg/dL (0.2-1.0); Total Protein 7.9 g/dL (6.4-8.2)
[2017-09-12] MEDS: ACCU-CHEK COMFORT CURVE STRIP VI SCH ×4 (06:18→23:57)
[2017-09-12] MEDS: HEPARIN SODIUM (PORCINE) 5000 UNITS/ML 1ML VIAL SC SCH ×2 (10:00→21:27)
[2017-09-12] MEDS: B-COMPLEX W/ C & FOLIC ACID(NEPHROVITE TAB) PO SCH (10:40)
[2017-09-12] MEDS: PANTOPRAZOLE 40 MG TAB PO SCH (10:40)
[2017-09-12] MEDS: CALCIUM ACETATE 667 MG CAP PO SCH ×3 (10:40→19:07)
[2017-09-12] MEDS: METOPROLOL TARTRATE 50 MG TAB PO SCH ×2 (10:41→21:27)
[2017-09-12] MEDS: NIFEdipine ER 30 MG TAB PO SCH (10:42)
[2017-09-12] MEDS: cloNIDine HCL 0.1 MG TAB PO SCH ×2 (10:48→21:26)
[2017-09-12] MEDS: guaiFENesin-DM 100/10mg/5ml SYR PO PRN (19:08)
[2017-09-12] MEDS: TEMAZEPAM 15 MG CAP PO PRN (21:32)
[2017-09-13] MEDS: guaiFENesin-DM 100/10mg/5ml SYR PO PRN ×2 (03:19→20:17)
[2017-09-13] MEDS: HYDROcodone-ACET 5/325MG TAB PO PRN ×4 (05:04→22:12)
[2017-09-13 05:27] VITALS: BP 127/68
[2017-09-13] MEDS: ACCU-CHEK COMFORT CURVE STRIP VI SCH ×4 (05:31→23:51)
[2017-09-13] MEDS: InsuLIN REG 1unit/0.01ml Soln (100units/ml) SC SCH ×5 (05:31→23:51)
[2017-09-13] MEDS ORDERED: EPOETIN ALFA 10,000 UNIT/1 ML VIAL IV ONE (08:30)
[2017-09-13] MEDS: CALCIUM ACETATE 667 MG CAP PO SCH ×3 (08:52→18:24)
[2017-09-13 09:00] VITALS: BP 140/75
[2017-09-13] MEDS: HEPARIN SODIUM (PORCINE) 5000 UNITS/ML 1ML VIAL SC SCH ×2 (09:37→21:57)
[2017-09-13] MEDS: B-COMPLEX W/ C & FOLIC ACID(NEPHROVITE TAB) PO SCH ×2 (09:38→12:26)
[2017-09-13] MEDS ORDERED: diphenhdrAMINE HCL 50 MG/1 ML VL IV ONE (09:45)
[2017-09-13 12:18] LABS: Hematocrit 29.1 % (41.0-53.0); Hemoglobin 9.7 g/dL (13.5-17.5)
[2017-09-13] MEDS: PANTOPRAZOLE 40 MG TAB PO SCH (12:26)
[2017-09-13] MEDS: METOPROLOL TARTRATE 50 MG TAB PO SCH ×2 (12:29→21:56)
[2017-09-13] MEDS: NIFEdipine ER 30 MG TAB PO SCH (12:29)
[2017-09-13] MEDS: cloNIDine HCL 0.1 MG TAB PO SCH ×2 (12:30→21:56)
[2017-09-13 13:00] VITALS: BP 150/83
[2017-09-13 15:51] VITALS: BP 161/84
[2017-09-13 17:19] VITALS: BP 138/82
[2017-09-13] MEDS ORDERED: HEPARIN SODIUM (PORCINE) 5000 UNITS/ML 1ML VIAL ONE (21:51)
[2017-09-13 23:57] VITALS: BP 140/73
[2017-09-14 05:01] VITALS: BP 126/68
[2017-09-14] MEDS: ACCU-CHEK COMFORT CURVE STRIP VI SCH ×2 (05:38→12:35)
[2017-09-14] MEDS: InsuLIN REG 1unit/0.01ml Soln (100units/ml) SC SCH ×2 (05:38→12:35)
[2017-09-14] MEDS: CALCIUM ACETATE 667 MG CAP PO SCH ×3 (07:53→18:00)
[2017-09-14] MEDS: HYDROcodone-ACET 5/325MG TAB PO PRN (07:53)
[2017-09-14] MEDS: METOPROLOL TARTRATE 50 MG TAB PO SCH ×2 (10:00→21:43)
[2017-09-14] MEDS ORDERED: LEVOFLOXACIN 250 MG TAB PO SCH (10:00)
[2017-09-14] MEDS: HYDROcodone-ACET 10/325MG TAB PO PRN ×2 (10:03→13:32)
[2017-09-14] MEDS: B-COMPLEX W/ C & FOLIC ACID(NEPHROVITE TAB) PO SCH (10:03)
[2017-09-14] MEDS: PANTOPRAZOLE 40 MG TAB PO SCH (10:04)
[2017-09-14] MEDS: cloNIDine HCL 0.1 MG TAB PO SCH ×2 (10:04→21:43)
[2017-09-14] MEDS: MORPHINE SULFATE 4 MG/ML SYR/VIAL IV PRN ×2 (11:05→14:40)
[2017-09-14] MEDS: NIFEdipine ER 30 MG TAB PO SCH (12:38)
[2017-09-14] MEDS: HEPARIN SODIUM (PORCINE) 5000 UNITS/ML 1ML VIAL SC SCH (21:44)
[2017-09-14] MEDS: TEMAZEPAM 15 MG CAP PO PRN (21:56)
[2017-09-14 22:00] VITALS: BP 152/71
[2017-09-14 23:00] VITALS: BP 141/71
[2017-09-15] MEDS: ACCU-CHEK COMFORT CURVE STRIP VI SCH ×4 (00:01→18:21)
[2017-09-15] MEDS: InsuLIN REG 1unit/0.01ml Soln (100units/ml) SC SCH ×4 (00:02→18:00)
[2017-09-15 05:00] VITALS: BP 149/80
[2017-09-15] MEDS: CALCIUM ACETATE 667 MG CAP PO SCH ×3 (08:48→18:00)
[2017-09-15 09:00] VITALS: BP 157/81
[2017-09-15] MEDS: NIFEdipine ER 30 MG TAB PO SCH (10:00)
[2017-09-15] MEDS: cloNIDine HCL 0.1 MG TAB PO SCH (10:00)
[2017-09-15] MEDS: METOPROLOL TARTRATE 50 MG TAB PO SCH (10:00)
[2017-09-15] MEDS: HEPARIN SODIUM (PORCINE) 5000 UNITS/ML 1ML VIAL SC SCH (10:49)
[2017-09-15] MEDS: B-COMPLEX W/ C & FOLIC ACID(NEPHROVITE TAB) PO SCH (10:51)
[2017-09-15] MEDS: PANTOPRAZOLE 40 MG TAB PO SCH (10:51)
[2017-09-15] MEDS ORDERED: EPOETIN ALFA 10,000 UNIT/1 ML VIAL IV ONE (12:00)
[2017-09-15 13:00] VITALS: BP 162/83
[2017-09-15 16:00] VITALS: BP 177/86
[2017-09-15] MEDS ORDERED: LEVOFLOXACIN 250 MG TAB PO ONE (19:00)
[2017-09-15] MEDS ORDERED: diphenhdrAMINE HCL 50 MG/1 ML VL IV ONE (19:15)
[2017-09-15 22:00] VITALS: BP_SYST 121; BP_SYST 171; BP_DIAS 67; BP_DIAS 85
[2017-09-15 23:23] VITALS: BP 174/78
[2017-09-16] MEDS: TEMAZEPAM 15 MG CAP PO PRN ×2 (00:20→21:20)
[2017-09-16] MEDS: METOPROLOL TARTRATE 50 MG TAB PO SCH ×3 (00:20→21:23)
[2017-09-16] MEDS: cloNIDine HCL 0.1 MG TAB PO SCH ×3 (00:20→21:20)
[2017-09-16] MEDS: HEPARIN SODIUM (PORCINE) 5000 UNITS/ML 1ML VIAL SC SCH ×3 (00:23→21:19)
[2017-09-16] MEDS: ONDANSETRON HCL 4 MG/2 ML VIAL IV PRN ×4 (00:34→18:40)
[2017-09-16] MEDS: ACCU-CHEK COMFORT CURVE STRIP VI SCH ×4 (00:58→18:41)
[2017-09-16 05:00] VITALS: BP 149/83
[2017-09-16] MEDS: InsuLIN REG 1unit/0.01ml Soln (100units/ml) SC SCH ×4 (06:50→18:00)
[2017-09-16] MEDS: CALCIUM ACETATE 667 MG CAP PO SCH ×3 (08:19→18:40)
[2017-09-16 09:00] VITALS: BP 151/63
[2017-09-16] MEDS: B-COMPLEX W/ C & FOLIC ACID(NEPHROVITE TAB) PO SCH ×2 (10:00→10:18)
[2017-09-16] MEDS: PANTOPRAZOLE 40 MG TAB PO SCH (10:23)
[2017-09-16] MEDS: NIFEdipine ER 30 MG TAB PO SCH (10:23)
[2017-09-16] MEDS ORDERED: LOPERAMIDE HCL 2 MG CAP PO ONE (10:30)
[2017-09-16 13:00] VITALS: BP 182/86
[2017-09-16] MEDS ORDERED: SERTRALINE HCL 50 MG TAB PO ONE (13:15)
[2017-09-16 17:00] VITALS: BP 150/71
[2017-09-16] MEDS ORDERED: HEPARIN SODIUM (PORCINE) 5000 UNITS/ML 1ML VIAL ONE (21:10)
[2017-09-16 22:00] VITALS: BP 138/69
[2017-09-17] MEDS: ACCU-CHEK COMFORT CURVE STRIP VI SCH ×3 (00:28→11:31)
[2017-09-17 05:00] VITALS: BP 138/71
[2017-09-17] MEDS: InsuLIN REG 1unit/0.01ml Soln (100units/ml) SC SCH ×3 (05:43→11:42)
[2017-09-17 05:55] LABS: Basophils # (auto) 0 uL; Basophils % (auto) 0.8 % (0.0-2.0); Eosinophils # (auto) 0.1 uL; Eosinophils % (auto) 1.2 % (0.0-7.0); Hematocrit 31.5 % (41.0-53.0); Hemoglobin 10.6 g/dL (13.5-17.5); Lymphocytes # (auto) 1.4 uL; Lymphocytes % (auto) 24.7 % (10.0-50.0); Mean Corpuscular Hemoglobin 29.5 pg (28.0-32.0); Mean Corpuscular Hgb Conc. 33.6 g/dL (32.0-36.0); Mean Corpuscular Volume 87.7 fL (80.0-100.0); Monocytes # (auto) 0.6 uL; Monocytes % (auto) 10.1 % (0.0-12.0); Neutrophils # (auto) 3.5 uL; Neutrophils % (auto) 63.2 % (37.0-80.0); Nucleated Red Blood Cells % 0.1 %; Platelet Count (auto) 278 10^3/uL (140-450); Red Blood Cells 3.59 10^6/uL (4.5-5.90); Red Cell Distribution Width 16.6 % (11.8-14.3); White Blood Cell 5.5 10^3/uL (4.4-10.8)
[2017-09-17 06:12] LABS: Calcium 8.6 mg/dL (8.5-10.1); Potassium 4.5 mmol/L (3.5-5.1)
[2017-09-17] MEDS: CALCIUM ACETATE 667 MG CAP PO SCH ×2 (08:15→11:42)
[2017-09-17 09:00] VITALS: BP 140/74
[2017-09-17] MEDS: B-COMPLEX W/ C & FOLIC ACID(NEPHROVITE TAB) PO SCH (09:12)
[2017-09-17] MEDS: cloNIDine HCL 0.1 MG TAB PO SCH (09:13)
[2017-09-17] MEDS: PANTOPRAZOLE 40 MG TAB PO SCH (09:14)
[2017-09-17] MEDS: NIFEdipine ER 30 MG TAB PO SCH (09:15)
[2017-09-17] MEDS: METOPROLOL TARTRATE 50 MG TAB PO SCH (09:18)
[2017-09-17] MEDS: HEPARIN SODIUM (PORCINE) 5000 UNITS/ML 1ML VIAL SC SCH (09:23)
[2017-09-17] MEDS ORDERED: SERTRALINE HCL 50 MG TAB PO SCH (10:00)
[2017-09-17 13:00] VITALS: BP 127/61
[2017-09-18] MEDS ORDERED: EPOETIN ALFA 10,000 UNIT/1 ML VIAL IV ONE (12:00)
[2017-09-18] MEDS ORDERED: SODIUM CHL 0.9% 1000 ML BAG XX ONE (12:00)
== END 2017-09-17 13:55 | disposition home health service (06) | DRG 291 ==
LOC: EDBD 02:20 → ER 02:20 → TELE 02:21 → TELE-CENTR 16:27
PROVIDERS: ADMIT Nurse Practitioner; ATTEND Internal Medicine Pulmonary Disease
PROC: 5A1D70Z Performance of Urinary Filtration, Intermittent, Less than 6 Hours Per Day (ICD-10-PCS; principal; 2017-09-11)
PROC: 5A09357 Assistance with Respiratory Ventilation, Less than 24 Consecutive Hours, Continuous Positive Airway Pressure (ICD-10-PCS; 2017-09-11)
PROC: 5A09357 Assistance with Respiratory Ventilation, Less than 24 Consecutive Hours, Continuous Positive Airway Pressure (ICD-10-PCS; 2017-09-12)
PROC: 5A1D70Z Performance of Urinary Filtration, Intermittent, Less than 6 Hours Per Day (ICD-10-PCS; 2017-09-13)
DX: I13.2 Hypertensive heart and chronic kidney disease with heart failure and with stage 5 chronic kidney disease, or end stage renal disease (principal); N18.6 End stage renal disease; J96.01 Acute respiratory failure with hypoxia; J18.1 Lobar pneumonia, unspecified organism; E11.22 Type 2 diabetes mellitus with diabetic chronic kidney disease; I50.33 Acute on chronic diastolic (congestive) heart failure; E44.1 Mild protein-calorie malnutrition; E87.1 Hypo-osmolality and hyponatremia; D63.8 Anemia in other chronic diseases classified elsewhere; E11.65 Type 2 diabetes mellitus with hyperglycemia; E66.01 Morbid (severe) obesity due to excess calories; F41.9 Anxiety disorder, unspecified; Z80.1 Family history of malignant neoplasm of trachea, bronchus and lung; Z82.49 Family history of ischemic heart disease and other diseases of the circulatory system; Z99.2 Dependence on renal dialysis; Z83.3 Family history of diabetes mellitus; Z68.31 Body mass index [BMI] 31.0-31.9, adult; Z88.2 Allergy status to sulfonamides; Z88.1 Allergy status to other antibiotic agents; Z88.8 Allergy status to other drugs, medicaments and biological substances; Z23 Encounter for immunization; Z90.49 Acquired absence of other specified parts of digestive tract
CPT/HCPCS: 36415; 36600; 71045; 71046; 80048; 80053; 82805; 82962; 83735; 83880; 84484; 85014; 85018; 85025; 85610; 85730; 87081; 87493; 90935; 93005; 94660; 96374; 96375; 97116; 97163; 97530; 99291; J0885; J1642; J1815; J2405

== ENCOUNTER 2019-02-09 17:32 | Emergency (ER) | payer MEDICARE, MEDICAID, OTHER ==
[~2019-02-09] VITALS: Ht 167.6 cm; Wt 101.2 kg
[~2019-02-09 17:32] MED LIST changes: -FOSI20TA PO; +FOSI20TA3 PO; -FOSI40TA2 PO; +FOSI40TA4 PO; -NIF30XLT PO; +NIFE30TA77 PO
[2019-02-09 18:39] VITALS: BP 151/77
[2019-02-09] MEDS ORDERED: ACETAMINOPHEN/CODEINE#3 (300/30mg) TAB PO ONE (19:00)
[2019-02-09] MEDS ORDERED: DexAMETHasone SOD PHOS 10MG/1ML VIAL INJ IM ONE (19:00)
== END 2019-02-09 19:16 | disposition home or self-care (01) ==
LOC: ER 17:43
DX: S80.212A Abrasion, left knee, initial encounter (principal); S80.211A Abrasion, right knee, initial encounter; I13.2 Hypertensive heart and chronic kidney disease with heart failure and with stage 5 chronic kidney disease, or end stage renal disease; E11.22 Type 2 diabetes mellitus with diabetic chronic kidney disease; N18.6 End stage renal disease; I50.9 Heart failure, unspecified; Z90.49 Acquired absence of other specified parts of digestive tract; Z88.2 Allergy status to sulfonamides; Z88.8 Allergy status to other drugs, medicaments and biological substances; Z79.82 Long term (current) use of aspirin; Z79.899 Other long term (current) drug therapy; Z99.2 Dependence on renal dialysis; W18.30XA Fall on same level, unspecified, initial encounter; Y93.89 Activity, other specified; Y92.89 Other specified places as the place of occurrence of the external cause; Y99.8 Other external cause status
CPT/HCPCS: 73562; 73600; 73620; 96372; 99283; J1100

== ENCOUNTER 2019-05-17 20:50 | Inpatient (IN) | payer MEDICARE, MEDICAID ==
[~2019-05-17] VITALS: Ht 170.2 cm; Wt 99.8 kg
[2019-05-17 22:23] LABS: Basophils # (auto) 0.2 uL; Basophils % (auto) 1.3 % (0.0-2.0); Eosinophils # (auto) 0 uL; Eosinophils % (auto) 0.3 % (0.0-7.0); Hemoglobin 14.3 g/dL (13.5-17.5); Lymphocytes # (auto) 1.3 uL; Lymphocytes % (auto) 9.1 % (10.0-50.0); Mean Corpuscular Hemoglobin 33.1 pg (28.0-32.0); Mean Corpuscular Volume 94.7 fL (80.0-100.0); Monocytes # (auto) 0.7 uL; Monocytes % (auto) 4.6 % (0.0-12.0); Neutrophils % (auto) 84.7 % (37.0-80.0); Nucleated Red Blood Cells % 0.5 %; Platelet Count (auto) 290 10^3/uL (140-450); Red Blood Cells 4.33 10^6/uL (4.5-5.90); Red Cell Distribution Width 14.8 % (11.8-14.3); White Blood Cell 14.1 10^3/uL (4.4-10.8)
[2019-05-17 22:26] LABS: Albumin 3.7 g/dL (3.4-5.0); BUN/Creatinine Ratio 3.7; Calcium 8.4 mg/dL (8.5-10.1); Potassium 3.6 mmol/L (3.5-5.1)
[2019-05-17 22:35] LABS: Bilirubin, Total 0.7 mg/dL (0.2-1.0); Total Protein 10.1 g/dL (6.4-8.2)
[2019-05-17 22:59] LABS: Amylase 75 U/L (25-115); Lipase 163 U/L (73-393)
[2019-05-17] MEDS ORDERED: ONDANSETRON HCL 4 MG/2 ML VIAL IV ONE (23:00)
[2019-05-17] MEDS ORDERED: MORPHINE SULFATE 4 MG/ML SYR/VIAL IV ONE (23:00)
[2019-05-17] MEDS ORDERED: SODIUM CHLORIDE 0.9% 500 ML IV ONE (23:00)
[2019-05-18] MEDS ORDERED: LABETALOL HCL 5 MG/ML ML 20ML VIAL IV ONE ×2 (02:15→05:30)
[2019-05-18] MEDS ORDERED: PROMETHAZINE HCL 25 MG/ML 1ML IV ONE ×2 (02:15→12:45)
[2019-05-18] MEDS ORDERED: VANCOMYCIN PER PHARMACY 0 MG IV SCH (02:30)
[2019-05-18] MEDS ORDERED: cefTRIAXone 1GM/50ML D5W 50 ML IV ONE (03:00)
[2019-05-18] MEDS ORDERED: ENOXAPARIN SOD 100 MG/1 ML SYRINGE SC ONE (03:00)
[2019-05-18] MEDS ORDERED: ACETAMINOPHEN 325 MG TAB PO PRN (03:30)
[2019-05-18] MEDS ORDERED: ONDANSETRON HCL 4 MG/2 ML VIAL IV PRN (03:30)
[2019-05-18] MEDS ORDERED: MORPHINE SULFATE 4 MG/ML SYR/VIAL IV PRN (03:30)
[2019-05-18] MEDS ORDERED: MORPHINE SULF INJ 2 MG/ML SYRINGE 1ML IV PRN (03:30)
[2019-05-18] MEDS ORDERED: VANCOMYCIN 1GM/250ML 250 ML IV ONE (03:30)
[2019-05-18] MEDS ORDERED: DEXTROSE (50%) 50ML SYRG IV PRN (03:30)
[2019-05-18] MEDS ORDERED: HYDROcodone-ACET 5/325MG TAB PO PRN (03:30)
[2019-05-18] MEDS ORDERED: NITROGLYCERIN 0.4 MG SL TAB SL PRN (03:30)
[2019-05-18] MEDS ORDERED: DOCUSATE SOD 100 MG CAP PO PRN (03:30)
[2019-05-18] MEDS: ACCU-CHEK COMFORT CURVE STRIP VI SCH ×3 (06:00→18:00)
[2019-05-18 06:05] VITALS: BP 198/92
[2019-05-18] MEDS: InsuLIN REG 1unit/0.01ml Soln (100units/ml) SC SCH ×3 (06:52→18:00)
[2019-05-18 08:00] VITALS: BP 201/83
--- NOTE | 2019-05-18 08:00 | NUR ---
Opening Shift Note Assumed care of patient, awake and alert. Patient A&Ox4. Patient on the monitor. Patient on 2L NC saturation 95%. IV right AC 20G saline locked patent, clean, dry, and intact. Left forearm fistula felt thrill and heard bruit. Patient is anuric. No S/S of distress/SOB or pain. Instructed on POC and to call for assist. Bed locked and in the lowest position, side rails up x2, call light with in reach. Will continue to monitor.
[2019-05-18 08:49] LABS: Basophils # (auto) 0.1 uL; Basophils % (auto) 0.6 % (0.0-2.0); Eosinophils # (auto) 0 uL; Eosinophils % (auto) 0.1 % (0.0-7.0); Hemoglobin 13.3 g/dL (13.5-17.5); Lymphocytes # (auto) 1.1 uL; Lymphocytes % (auto) 9.9 % (10.0-50.0); Mean Corpuscular Hemoglobin 32.3 pg (28.0-32.0); Mean Corpuscular Hgb Conc. 34.1 g/dL (32.0-36.0); Mean Corpuscular Volume 94.8 fL (80.0-100.0); Monocytes # (auto) 0.6 uL; Monocytes % (auto) 5.3 % (0.0-12.0); Neutrophils # (auto) 9.6 uL; Neutrophils % (auto) 84.1 % (37.0-80.0); Platelet Count (auto) 241 10^3/uL (140-450); Red Blood Cells 4.12 10^6/uL (4.5-5.90); Red Cell Distribution Width 14.5 % (11.8-14.3); White Blood Cell 11.4 10^3/uL (4.4-10.8)
[2019-05-18 09:04] LABS: BUN/Creatinine Ratio 3.9; Calcium 8.2 mg/dL (8.5-10.1)
[2019-05-18 09:16] LABS: Potassium 2.7 mmol/L (3.5-5.1)
[2019-05-18] MEDS ORDERED: cefTRIAXone SOD 1,000 MG VL IM SCH (10:00)
--- NOTE | 2019-05-18 10:00 | NUR ---
Medication dosages, usages, and side effects explained to patient. Patient verbalized understanding. Will continue to monitor.
[2019-05-18] MEDS: cloNIDine HCL 0.1 MG TAB PO SCH ×2 (10:08→22:16)
[2019-05-18] MEDS: METOPROLOL TARTRATE 50 MG TAB PO SCH ×2 (10:08→22:15)
[2019-05-18] MEDS: NIFEdipine ER 30 MG TAB PO SCH (10:09)
[2019-05-18] MEDS ORDERED: SODIUM CHL 0.9% 1000 ML BAG XX ONE (10:30)
[2019-05-18 12:00] VITALS: BP 196/88
--- NOTE | 2019-05-18 12:30 | NUR ---
Patient sitting up in bed eating lunch independently. Will continue to monitor.
[2019-05-18] MEDS ORDERED: hydrALAZINE HCL 20 MG/ML VL IV PRN (12:45)
[2019-05-18] MEDS ORDERED: hydrALAZINE HCL 20 MG/ML VL IV ONE (12:45)
[2019-05-18] MEDS: cefTRIAXone 1GM/50ML D5W 50 ML IV SCH (13:18)
[2019-05-18] MEDS ORDERED: diphenhdrAMINE HCL 50 MG/1 ML VL IV ONE (15:45)
[2019-05-18 16:00] VITALS: BP 157/75
--- NOTE | 2019-05-18 17:45 | NUR ---
Dr. Carrington at bedside.
[2019-05-18] MEDS ORDERED: VANCOMYCIN 500 MG in D5W 5% 100 ML IV ONE (18:00)
[2019-05-18] MEDS: PANTOPRAZOLE 40 MG/10 ML VIAL INJ IV ONE ×2 (18:30→19:23)
[2019-05-18] MEDS ORDERED: PROMETHAZINE HCL 25 MG/ML 1ML IV PRN (18:30)
--- NOTE | 2019-05-18 18:30 | NUR ---
End of shift note Patient resting at this time. Patient refused dinner tray. Patient A&Ox4. Patient on the monitor. Patient on 2L NC saturation 98%. IV right AC 20G running KCL rider, patent, clean, dry, and intact. Left forearm fistula dressing clean, dry, and intact. Dressing to be removed at 2300. Patient is anuric. No S/S of distress/SOB or pain. Bed locked and in the lowest position, side rails up x2, call light with in reach. Report to be given to police shift commander RN. Will continue to monitor.
[2019-05-18] MEDS: POTASSIUM CHL 20MEQ/100ML 100 ML IV SCH ×2 (18:33→22:17)
[2019-05-18 20:00] VITALS: BP 144/57
[2019-05-18] MEDS: TEMAZEPAM 15 MG CAP PO PRN (22:15)
[2019-05-19] VITALS: BP 137/44
--- NOTE | 2019-05-19 03:19 | NUR ---
Pt had burning issues with IV K-rider. Both have been infused but had to be infused slowly. Last K-rider finished at 0200. Lab draw postponed until AM labs since it was only a couple of hours away so patient didn't have to be drawn twice in a short period. Pt had requested sleeping pill, Restoril given at 2200. Other than the first few hours of the shift when IV site burning was an issue being dealt with, pt has rested comfortably and shows no signs or symptoms of distress. Dialysis dressing was removed at midnight. Site is clear, pt tolerated well. Will continue to monitor.
[2019-05-19 04:00] VITALS: BP 136/39
[2019-05-19 05:37] LABS: Basophils # (auto) 0.1 uL; Basophils % (auto) 0.8 % (0.0-2.0); Eosinophils # (auto) 0.1 uL; Eosinophils % (auto) 0.5 % (0.0-7.0); Hemoglobin 12.9 g/dL (13.5-17.5); Lymphocytes # (auto) 1.6 uL; Lymphocytes % (auto) 11.2 % (10.0-50.0); Mean Corpuscular Hemoglobin 32.6 pg (28.0-32.0); Mean Corpuscular Volume 95.8 fL (80.0-100.0); Monocytes # (auto) 1.1 uL; Neutrophils # (auto) 11.2 uL; Neutrophils % (auto) 79.5 % (37.0-80.0); Platelet Count (auto) 257 10^3/uL (140-450); Red Blood Cells 3.96 10^6/uL (4.5-5.90); Red Cell Distribution Width 14.7 % (11.8-14.3)
[2019-05-19] MEDS: InsuLIN REG 1unit/0.01ml Soln (100units/ml) SC SCH ×4 (06:00→17:54)
[2019-05-19] MEDS: ACCU-CHEK COMFORT CURVE STRIP VI SCH ×4 (06:00→17:48)
[2019-05-19 06:01] LABS: Potassium 3.1 mmol/L (3.5-5.1)
[2019-05-19 06:09] LABS: Calcium 8.1 mg/dL (8.5-10.1); Phosphorus 2.1 mg/dL (2.5-4.90)
[2019-05-19] MEDS ORDERED: POTASSIUM CHL 20MEQ/100ML 100 ML IV ONE ×2 (06:45→07:15)
[2019-05-19] MEDS ORDERED: POTASSIUM CHL 10 Meq TABLET PO ONE (06:45)
--- NOTE | 2019-05-19 07:30 | NUR ---
RECEIVED PATIENT SITTING UP IN THE BED A/O TIMES 4 TO NAME BEING CALLED, HARD OF HEARING BUT ABLE TO COMMUNICATE WITH HIM, NS AT TKO INFUSING INTO THE RAC BY THE IV PUMP, STATES HE DOESN'T URINATE, DENIES PAIN AND ASKING IF HE CAN GET SOMETHING TO EAT HE IS HUNGRY, EXPRESS TO HIM THAT BREAKFAST WILL BE HERE AT ABOUT 0815, O2 AT 3L BY N/C
--- NOTE | 2019-05-19 07:34 | NUR ---
Pt remained stable for rest of shift. No S/S of nausea or vomiting after AM shift RN gave Phenergan and Protonix at change of shift. Pt was bathed, linens cleaned. Report given, care endorsed.
[2019-05-19 08:00] VITALS: BP 140/72
--- NOTE | 2019-05-19 08:15 | NUR ---
DR GARCIA INTO SEE THE PATIENT AND STATES CAN GO HOME IF NO CARDIAC WORKUP IS GOING TO BE DONE
--- NOTE | 2019-05-19 08:30 | NUR ---
SAT UP ON THE SIDE OF THE BED AND ATE HIS BREAKFAST NO HELP NEEDED
[2019-05-19] MEDS: cefTRIAXone 1GM/50ML D5W 50 ML IV SCH (09:16)
--- NOTE | 2019-05-19 09:23 | NUR ---
UP TO THE BSC NO HELP NEEDED,
--- NOTE | 2019-05-19 09:45 | NUR ---
STATES HE DIDN'T HAVE A BM
--- NOTE | 2019-05-19 10:00 | NUR ---
EXPLAIN MEDIATIONS TO THE PATIENT REGARDING THE DOSAGE, USAGE AND THE SIDE EFFECTS, VERBALIZED THAT THE UNDERSTOOD AND MEDS GIVEN ORDERED
[2019-05-19] MEDS: cloNIDine HCL 0.1 MG TAB PO SCH ×2 (10:04→22:29)
[2019-05-19] MEDS: NIFEdipine ER 30 MG TAB PO SCH (10:05)
--- NOTE | 2019-05-19 10:54 | NUR ---
ICE SCRAPER IN TALKING WITH THE PATIENT
--- NOTE | 2019-05-19 11:17 | NUR ---
SAT UP IN BED AND ATE SOME JELL-O
--- NOTE | 2019-05-19 11:19 | NUR ---
NUTRITION CONSULT/ASSESSMENT NOTES Please refer to link notes of nutrition screen form filed under the intervention section of the plan of care for further details. Est. Needs: 1950 kcal to 2450 kcal (20-25 kcal/kgBW), 98 gms to 136 gms pro (1.0-1.4 gms/kgBW d/t ESRD on HD). Will continue to monitor pertinent labs and reassess nutrient need prn Thank you for this consult. Addendum: 05/19/19 at [address] Amended: Links added.
[2019-05-19] MEDS: METOPROLOL TARTRATE 50 MG TAB PO SCH ×2 (11:48→22:28)
--- NOTE | 2019-05-19 11:52 | NUR ---
LYING IN BED, WATCHING TV, DENIES PAIN AND SOB O2 BY R/A WITH ST 98%
[2019-05-19 11:59] VITALS: BP 139/67
--- NOTE | 2019-05-19 12:05 | NUR ---
DR FARLEY IN TO SEE THE PATIENT AND STATES HE MAY GO HOME AFTER THE CHEST X-RAY IS DONE AND ITS OKAY
--- NOTE | 2019-05-19 12:35 | NUR ---
SITTING UP ON THE SIDE OF THE BED EATING HIS LUNCH, X-RAY CAME BUT SAID THEY WILL BE BACK
--- NOTE | 2019-05-19 13:15 | NUR ---
X-RAY TAKEN OF THE CHEST
--- NOTE | 2019-05-19 13:25 | NUR ---
PATIENT UP AND WALKED AROUND THE UNIT ABOUT 200FEET USING THE WALKER AND TOLERATED WELL. BACK TO THE BED HR 77 AND O2 SAT 94% ON R/A
--- NOTE | 2019-05-19 14:30 | NUR ---
SITTING UP IN THE BED, WATCHNG FOOTBALL AND TEXTING ON THE PHONE, WAITING FOR THE MD TO DECIDE IF HE IS GOING HOME TODAY
--- NOTE | 2019-05-19 15:00 | NUR ---
PATIENTS O2 SAT DROPS AT TIMES WHEN HE IS SLEEPING, LAYING FLAT ON HIS BACK AND HE SNORES DROPS TO 88% AND THAN GOES BACK UP TO 94%, POSSIBLE HE HAS SLEEP APNEA, HE SNORES LOUD AT TIMES
--- NOTE | 2019-05-19 15:55 | NUR ---
PAGED DR FARLEY ABOUT THE DISCHARGE FOR THE PATIENT AND IF HE WAS GOING HOME, PATIENT REQUEST, STATES IT HAS BEEN A WHILE SINCE THEY DID THE CHEST X-RAY,
--- NOTE | 2019-05-19 16:24 | NUR ---
DR FARLEY CALLED REGARDING THE PATIENT AND STATED HE IS NOT GOING TO GO HOME, BECAUSE OF THE CHEST X-RAY SHOWING SOME PNEU, AND SHE WANTS A ULTRA SOUND OF THE RUQ, PATIENT MADE AWARE THAT HE IS NOT GONG HOME AND IS OKAY WITH IT
[2019-05-19] MEDS ORDERED: LEVOFLOXACIN 250MG 50 ML IV ONE (16:30)
--- NOTE | 2019-05-19 17:34 | NUR ---
PATIENT CALLED HIS SISTER AND MADE HER AWARE THAT HE IS NOT GOING HOME SHEYLAUIN STARTED IV, EXPRESS TO HIM THAT HE CAN'T EAT BECAUSE HE IS GOING TO HAVE A US OF THE [facility]O BETWEEN [id number], STATES HE UNDERSTANDS
--- NOTE | 2019-05-19 17:56 | NUR ---
BS 192 GAVE 3 UNITS OF REGULAR INSULIN , PATIENT STATES HE WILL BE OKAY, ALSO RUNNING ANTIBIOTICS WHICH ARE MIXED IN D5
--- NOTE | 2019-05-19 18:11 | NUR ---
PATIENT SITTING UP IN THE BED, TEXTING ON HIS PHONE, O2 BY R/A, O2 SAT 93% ,ANTIBIOTICS INFUSING INTO THE RAC BY THE IV PUMP, DENIES PAIN AND SOB, A/O TIMES 4, HARD OF HEARING, HE IS ANURIC AND NO BM TODAY, WAITING FOR THE ULTRA SOUND TO BE DONE, WILL CONTINUE TO MONITOR AND GIVE REPORT TO THE NEXT SHIFT
--- NOTE | 2019-05-19 19:20 | NUR ---
ULTRASOUND DONE, PATIENT CAN EAT
[2019-05-19 20:00] VITALS: BP 145/45
--- NOTE | 2019-05-19 21:51 | NUR ---
Called sister of patient to find out accuracy of home medications. Left message, waiting for call back.
[2019-05-19] MEDS: TEMAZEPAM 15 MG CAP PO PRN (22:29)
[2019-05-20] VITALS: BP 129/64
[2019-05-20] MEDS: InsuLIN REG 1unit/0.01ml Soln (100units/ml) SC SCH ×4 (01:50→17:54)
[2019-05-20] MEDS ORDERED: ONDA-144 PO (03:11)
[2019-05-20] MEDS ORDERED: PREG50CA PO (03:11)
[2019-05-20] MEDS ORDERED: SERT100T PO (03:11)
[2019-05-20 04:00] VITALS: BP 128/33
[2019-05-20 05:43] LABS: Basophils # (auto) 0.1 uL; Basophils % (auto) 0.6 % (0.0-2.0); Eosinophils # (auto) 0.3 uL; Eosinophils % (auto) 2.3 % (0.0-7.0); Hematocrit 35.4 % (41.0-53.0); Hemoglobin 12.1 g/dL (13.5-17.5); Lymphocytes # (auto) 1.6 uL; Mean Corpuscular Hemoglobin 32.7 pg (28.0-32.0); Mean Corpuscular Hgb Conc. 34.2 g/dL (32.0-36.0); Mean Corpuscular Volume 95.7 fL (80.0-100.0); Monocytes # (auto) 0.8 uL; Monocytes % (auto) 7.2 % (0.0-12.0); Neutrophils # (auto) 8.8 uL; Neutrophils % (auto) 75.9 % (37.0-80.0); Platelet Count (auto) 206 10^3/uL (140-450); Red Cell Distribution Width 14.5 % (11.8-14.3); White Blood Cell 11.6 10^3/uL (4.4-10.8)
[2019-05-20] MEDS: ACCU-CHEK COMFORT CURVE STRIP VI SCH ×4 (06:00→17:53)
--- NOTE | 2019-05-20 07:30 | NUR ---
RECEIVED PATIENT SITTING UP IN THE BED, A/O TIMES 4, BUT IS HARD OF HEARING, ANTIBIOTICS INFUSING INTO THE RAC BY THE IV PUMP, PATIENT IS ANURIC OF URINE AND IS SUPPOSE TO HAVE DIALYSIS TODAY,, O2 AT 3L BY N/C, DENIES PAIN, HE IS TELE STATUS
--- NOTE | 2019-05-20 07:56 | NUR ---
Current med list obtained from sister. Pt remained stable this shift. Sleep aid given per request and pt slept well. Report given, care endorsed.
--- NOTE | 2019-05-20 08:00 | NUR ---
TO X-RAY BY THE CHAIR FOR 2 VIEW
[2019-05-20 08:05] VITALS: BP 160/40
--- NOTE | 2019-05-20 08:15 | NUR ---
BACK FROM 2 VIEW CHEST X-RAY
--- NOTE | 2019-05-20 08:15 | NUR ---
DR GARCIA IN TO SEE TH PATIENT AND ORDERED DIALYSIS FOR TODAY
--- NOTE | 2019-05-20 08:30 | NUR ---
SAT UP IN BED AND ATE HIS BREAKFAST ABLE TO FEED HIM SELF
[2019-05-20] MEDS: cefTRIAXone 1GM/50ML D5W 50 ML IV SCH (08:57)
[2019-05-20] MEDS ORDERED: SODIUM CHL 0.9% 1000 ML BAG XX ONE (09:00)
[2019-05-20] MEDS ORDERED: diphenhdrAMINE HCL 50 MG/1 ML VL IV ONE (10:00)
[2019-05-20] MEDS ORDERED: LEVOFLOXACIN 250MG 50 ML IV SCH (10:00)
--- NOTE | 2019-05-20 10:00 | NUR ---
AM MEDS HAVE TO BE HELD UNTIL AFTER DIALYSIS
--- NOTE | 2019-05-20 11:00 | NUR ---
DIALYSIS CONTINUES AND PATIENT TOLERATING
[2019-05-20 12:00] VITALS: BP 119/63
--- NOTE | 2019-05-20 12:30 | NUR ---
STATES HE WILL WAIT UNTIL AFTER DIALYSIS IS FINISHED TO HIS LUNCH
--- NOTE | 2019-05-20 12:45 | NUR ---
DIALYSIS FINISHED AND PATIETN TOLERATED REMOVED 2515 L OF FLUID
--- NOTE | 2019-05-20 13:10 | NUR ---
DR BELTRE IN TO SEE THE PATIENT AND ORDERED LAB TEST FOR TOMORROW AND CHANGED HIS ANTIBIOTICS
--- NOTE | 2019-05-20 13:15 | NUR ---
SITTING UP IN BED EATING HIS LUNCH
--- NOTE | 2019-05-20 14:15 | NUR ---
SITTING UP IN BED WATCHING TV DENIES PAIN
[2019-05-20] MEDS: cloNIDine HCL 0.1 MG TAB PO SCH ×2 (14:58→21:38)
[2019-05-20] MEDS: NIFEdipine ER 30 MG TAB PO SCH (14:58)
[2019-05-20] MEDS: DOXYCYCLINE 100 MG TAB/CAP PO SCH ×2 (14:58→21:37)
--- NOTE | 2019-05-20 14:58 | NUR ---
DISCUSSED MEDICATIONS WITH THE PATIENT REGARDING THE DOSAGE, USAGE AND THE SIDE EFFECTS, STATES HE UNDERSTANDS AND MEDS GIVEN ORDERED, B/P HAS BEEN IN THE 110, HR 63, ARRANGE SINCE DIALYSIS
[2019-05-20] MEDS: METOPROLOL TARTRATE 50 MG TAB PO SCH ×2 (15:00→21:37)
[2019-05-20 16:00] VITALS: BP 123/51
--- NOTE | 2019-05-20 16:05 | NUR ---
LYING IN BED WITH EYES CLOSED APPEARS TO BE SEEPING
--- NOTE | 2019-05-20 17:02 | NUR ---
SITTING UP IN THE BED WATCHING TV,
--- NOTE | 2019-05-20 17:25 | NUR ---
EYES CLOSED APPEAR TO BE SLEEPING
--- NOTE | 2019-05-20 18:30 | NUR ---
SITTING UP ON THE SIDE OF THE BED EATING HIS DINNER, NO HELP NEEDED, HARD OF HEARING, O2 AT 3L BY N/C, PATIENT REMAINS ANURIC, SALINE LOCK TO THE RAC 20G, FLUSHED AND PATENT, DENIES PAIN AND SOB, WILL CONTINUE TO MONITOR AND GIVE REPORT TO THE NEXT SHIFT
--- NOTE | 2019-05-20 19:45 | NUR ---
OPENING SHIFT NOTE ASSUMED CARE OF PATIENT AWAKE AND ALERT X4. NO S/S OF DISTRESS OR SOB. PATIENT HAS NO COMPLAINTS OF PAIN AT THIS TIME. BED AT LOWEST LOCKED POSITION. SIDERAILS UP X2 AND CALL LIGHT WITHIN REACH. UPDATED PATIENT ON POC AND TO CALL FOR ASSISTANCE PRN. WILL CONTINUE TO MONITOR Q1H AND PRN. Addendum: 05/21/19 at 0201 by Shelly Jones RN RN CORRECT TIME AT 1999
--- NOTE | 2019-05-20 19:54 | NUR ---
REPORT CALLED TO BIRDIE MONREAL PATIENT GOING TO ROOM 288 A BY THE BED, HAS CELL PHONE AND DEVELOPMENT REPRESENTATIVE AND OTHER BELONGING PLACED ON TELE 70
--- NOTE | 2019-05-20 19:55 | NUR ---
IBAN pt transferred to floor KERONLEATHA G transferred to 288A via rney on athletic monitor and portable 02. All patient medications and personal belongings transferred with patient to receiving floor. Patient care transfered to Elizabeth RN by Libra MONREAL. NOTE: No distress or SOB noted upon departure.
[2019-05-20] MEDS: TEMAZEPAM 15 MG CAP PO PRN (21:56)
[2019-05-20 22:00] VITALS: BP 103/66
[2019-05-20] MEDS ORDERED: INSULIN LANTUS (GLARGINE) 1 /0.01ml (100units/ml) SC SCH (22:00)
[2019-05-21] MEDS: InsuLIN REG 1unit/0.01ml Soln (100units/ml) SC SCH ×3 (00:01→12:00)
[2019-05-21 05:00] VITALS: BP 98/65
[2019-05-21] MEDS: ACCU-CHEK COMFORT CURVE STRIP VI SCH ×3 (06:07→12:00)
--- NOTE | 2019-05-21 07:50 | NUR ---
Opening Shift Note Assumed care of patient, patient awake and alert sitting up in bed. Patient is on 1 L NC with even and unlabored respirations. No S/S of distress/SOB or pain. Bed is in lowest position, wheels are locked, side rails up x2, and call light is within reach. Instructed on POC and to call for assist PRN, will continue to monitor for changes Q1hr and PRN.
[2019-05-21 09:00] VITALS: BP 142/74
[2019-05-21 09:42] LABS: Basophils # (auto) 0.1 uL; Basophils % (auto) 0.7 % (0.0-2.0); Eosinophils # (auto) 0.2 uL; Eosinophils % (auto) 1.3 % (0.0-7.0); Hematocrit 42.7 % (41.0-53.0); Hemoglobin 14.6 g/dL (13.5-17.5); Lymphocytes # (auto) 1.9 uL; Lymphocytes % (auto) 10.9 % (10.0-50.0); Mean Corpuscular Hemoglobin 32.8 pg (28.0-32.0); Mean Corpuscular Hgb Conc. 34.2 g/dL (32.0-36.0); Mean Corpuscular Volume 95.9 fL (80.0-100.0); Monocytes # (auto) 1.1 uL; Monocytes % (auto) 6.2 % (0.0-12.0); Neutrophils # (auto) 14.3 uL; Neutrophils % (auto) 80.9 % (37.0-80.0); Nucleated Red Blood Cells % 0.1 %; Platelet Count (auto) 297 10^3/uL (140-450); Red Blood Cells 4.45 10^6/uL (4.5-5.90); Red Cell Distribution Width 14.7 % (11.8-14.3); White Blood Cell 17.7 10^3/uL (4.4-10.8)
--- NOTE | 2019-05-21 10:05 | NUR ---
At bedside with wound care nurse Wound care nurse assessing pt R hand skin tear and old skin tear scar on sacrum. dressing change performed. Patient tolerated well. will continue to monitor q1h and PRN.
--- NOTE | 2019-05-21 10:08 | NUR ---
WOUND CARE NOTE: Wound care in to see patient per wound care request regarding skin integrity issue that are noted by bedside nurse upon assessment. Bedside nurse took photograph of patient's skin issue for reference. Patient is 59 y/o male with admitting diagnosis of Pna, ESRD on Dialysis. Patient is resting in bed in Rm. 288A. Patient is awake,alert and able to verbalize needs. He's able to turn and reposition self. His Shimon score is 17. Skin/wound assessment done with assistance of patient's nurse, RAH Kathleen. Noted 2.5x 2cm open partial thickness skin tear to patient's dorsal Rt. hand. Wound is red with pink skip wound, moderate serous drainage noted on old dressing,no odor noted. Patient reported that the skin tear is from "blood draw". Cleansed Rt hand skin tear with NS, applied Thera honey gel and covered wound with opti foam gentle dressing. Patient's Rt inner gluteal has resolving skin tear/scar measuring 0.6x1.5cm, staff reported that it is moisture related, skip care given and applied Barrier cream as ordered. Patient tolerated well. Bed in low position, call cota within reach, nurse at bedside. No further wound care monitoring needed at this time. RECOMMENDATION: BID/PRN cleaning and application of Barrier cream to sacral, buttocks; Q3Days/PRN dressing change to Rt hand wound per MD order, redistribute pressure points with pillows,elevate heels on pillows. Addendum: 05/21/19 at 1147 by Aniya Longoria RN Amended: Links added.
[2019-05-21] MEDS: cefTRIAXone 1GM/50ML D5W 50 ML IV SCH (10:16)
[2019-05-21] MEDS: DOXYCYCLINE 100 MG TAB/CAP PO SCH (10:17)
[2019-05-21] MEDS: METOPROLOL TARTRATE 50 MG TAB PO SCH (10:18)
[2019-05-21] MEDS: cloNIDine HCL 0.1 MG TAB PO SCH (10:18)
[2019-05-21] MEDS: NIFEdipine ER 30 MG TAB PO SCH (10:19)
[2019-05-21 10:26] LABS: Potassium 4.2 mmol/L (3.5-5.1)
[2019-05-21 10:27] LABS: Anion Gap 14 (5-15); Blood Urea Nitrogen 30 mg/dL (7-18); Carbon Dioxide 22 mmol/L (21-32); Chloride 94 mmol/L (98-107); Glucose 286 mg/dL (74-106); Sodium 130 mmol/L (136-145)
[2019-05-21 10:28] LABS: Alanine Aminotransferase 27 U/L (16-61); Albumin 3.6 g/dL (3.4-5.0); Alkaline Phosphatase 133 U/L (45-117); Aspartate Aminotransferase 21 U/L (15-37); BUN/Creatinine Ratio 5.1; Bilirubin, Total 0.7 mg/dL (0.2-1.0); Calcium 8.5 mg/dL (8.5-10.1); GFR African American 13 mL/min; GFR Non-African American 10 mL/min; Magnesium 2.1 mg/dL (1.6-2.6); Total Protein 9.5 g/dL (6.4-8.2)
[2019-05-21] MEDS ORDERED: DOXY-216 PO (11:03)
[2019-05-21 13:00] VITALS: BP 129/74
--- NOTE | 2019-05-21 14:00 | NUR ---
PT REFUSED D/C WOUND PHOTOS ATTEMPTED TO TAKE D/C WOUND CARE PHOTOS. PT DECLINING STATING "I AM FULLY DRESSED AND DO DNOT WANT TO TAKE MY SWEATER AND PANTS OFF. AND PLUS THE WOUND CARE NURSE WAS HEAR THIS MORNING SO THE WOUND DRESSING WAS JUST CHANGED". PT EDUCATED ON IMPORTANCE OF D/C PHOTOS. PT VERBALIZED UNDERSTANDING BUT STILL DECLINED. WILL CONTINUE TO MONITOR.
--- NOTE | 2019-05-21 15:29 | NUR ---
D/C Planning Per consult for home health safety evaluation, physical therapy, medication management and vitals. Pt has [facility]. Contact [facility] Ph:) Fax:) faxed medical records. Per Polly they will resume service for patient within 48hrs upon d/c day. Informed RAH Kathleen. Addendum: 05/21/19 at 1543 by RONY BA Amended: Links added.
--- NOTE | 2019-05-21 15:55 | NUR ---
Patient Discharged Discharge instructions given as ordered. Encourage to follow up with PMD as instructed. All questions and concerns addressed. Patient verbalized understanding. Medication reconciliation form completed and copy given to patient. IV removed with catheter intact, pressure dressing applied. Telemetry unit returned to ICU. Patient taken to vehicle via wheelchair with all personal belongings, accompanied by staff and family member. Patient alert and awake, on room air, with even and unlabored respirations. No distress noted at time of departure.
== END 2019-05-21 15:55 | disposition home health service (06) | DRG 871 ==
LOC: EDBD 20:50 → ER 20:52 → TELE 20:53 → DOU IN ICU 05-18 06:00 → TELE-WESTW 05-20 19:57
PROVIDERS: ADMIT Hospitalist; ATTEND Internal Medicine
PROC: 5A1D70Z Performance of Urinary Filtration, Intermittent, Less than 6 Hours Per Day (ICD-10-PCS; 2019-05-18)
PROC: 5A1D70Z Performance of Urinary Filtration, Intermittent, Less than 6 Hours Per Day (ICD-10-PCS; principal; 2019-05-20)
DX: A41.9 Sepsis, unspecified organism (principal); J69.0 Pneumonitis due to inhalation of food and vomit; N18.6 End stage renal disease; J96.00 Acute respiratory failure, unspecified whether with hypoxia or hypercapnia; I50.33 Acute on chronic diastolic (congestive) heart failure; J98.11 Atelectasis; I13.2 Hypertensive heart and chronic kidney disease with heart failure and with stage 5 chronic kidney disease, or end stage renal disease; F10.239 Alcohol dependence with withdrawal, unspecified; Z99.2 Dependence on renal dialysis; E83.39 Other disorders of phosphorus metabolism; A08.4 Viral intestinal infection, unspecified; E11.22 Type 2 diabetes mellitus with diabetic chronic kidney disease; H91.90 Unspecified hearing loss, unspecified ear; Z88.2 Allergy status to sulfonamides; Z88.8 Allergy status to other drugs, medicaments and biological substances; Z80.1 Family history of malignant neoplasm of trachea, bronchus and lung; E66.9 Obesity, unspecified; Z68.34 Body mass index [BMI] 34.0-34.9, adult; E87.6 Hypokalemia; Y90.9 Presence of alcohol in blood, level not specified; Z82.49 Family history of ischemic heart disease and other diseases of the circulatory system; Z83.3 Family history of diabetes mellitus; Z79.82 Long term (current) use of aspirin; Z90.49 Acquired absence of other specified parts of digestive tract; Z79.4 Long term (current) use of insulin
CPT/HCPCS: 36415; 71045; 71046; 74176; 76705; 80048; 80053; 80202; 80320; 82150; 82962; 83036; 83605; 83690; 83735; 83880; 84100; 84132; 84484; 85025; 87040; 87081; 87278; 90935; 93005; 96372; 96374; 96375; C9113; G0378; J0696; J1642; J1815; J2405; J3480; J7060

== ENCOUNTER → 2020-01-11 | Emergency (ER) | payer MEDICARE, MEDICAID ==
[~2020-01-11] VITALS: Ht 167.6 cm; Wt 98.9 kg
[~2020-01-11] MED LIST changes: +DOXY-286 PO; +FUROSEMIDE 40 MG/4 ML VIAL IV ONE; +LABETALOL HCL 5 MG/ML 4ML SYRINGE IV ONE; +METH500T22 PO; -METH500T6 PO; +NIFE1TAB36 PO; -NIFE30TA77 PO; +ONDA-144 PO; +ONDANSETRON HCL 4 MG/2 ML VIAL IV ONE; +POTASSIUM EFFERVESENT TAB 25 MEQ PO ONE; +PREG50CA PO; +SERT100T PO; +SODIUM CHLORIDE 0.9% 1,000 ML IV ONE; +TEMA15CA91 PO; +cloNIDine HCL 0.1 MG TAB PO ONE
[2020-01-11 10:12] LABS: Basophils # (auto) 0.1 10 ^3/uL (0-0.2); Basophils % (auto) 0.8 % (0.0-2.0); Eosinophils # (auto) 0 10 ^3/uL (0-0.8); Hematocrit 36.2 % (41.0-53.0); Lymphocytes # (auto) 0.8 10 ^3/uL (0.4-5.4); Lymphocytes % (auto) 6.5 % (10.0-50.0); Mean Corpuscular Hemoglobin 30.5 pg (28.0-32.0); Mean Corpuscular Hgb Conc. 33.1 g/dL (32.0-36.0); Monocytes # (auto) 0.8 10 ^3/uL (0-1.3); Monocytes % (auto) 6.5 % (0.0-12.0); Neutrophils # (auto) 10.4 10 ^3/uL (1.6-8.6); Neutrophils % (auto) 86.2 % (37.0-80.0); Platelet Count (auto) 296 10^3/uL (140-450); Red Blood Cells 3.94 10^6/uL (4.5-5.90); Red Cell Distribution Width 15.2 % (11.8-14.3); White Blood Cell 12.1 10^3/uL (4.4-10.8)
[2020-01-11 10:30] LABS: Albumin 3.7 g/dL (3.4-5.0); Calcium 8.1 mg/dL (8.5-10.1)
[2020-01-11 10:37] LABS: BUN/Creatinine Ratio 3.1; Bilirubin, Total 0.8 mg/dL (0.2-1.0); Total Protein 9.7 g/dL (6.4-8.2)
[2020-01-11 10:42] LABS: Potassium 2.9 mmol/L (3.5-5.1)
[2020-01-11 13:30] VITALS: BP 176/69
== END | disposition home or self-care (01) ==
LOC: ER 07:54
DX: K52.9 Noninfective gastroenteritis and colitis, unspecified (principal); E87.6 Hypokalemia; G89.29 Other chronic pain; I13.2 Hypertensive heart and chronic kidney disease with heart failure and with stage 5 chronic kidney disease, or end stage renal disease; E11.65 Type 2 diabetes mellitus with hyperglycemia; E11.22 Type 2 diabetes mellitus with diabetic chronic kidney disease; N18.6 End stage renal disease; I50.9 Heart failure, unspecified; Z99.2 Dependence on renal dialysis; Z88.2 Allergy status to sulfonamides; Z88.8 Allergy status to other drugs, medicaments and biological substances
CPT/HCPCS: 36415; 71046; 80053; 83690; 83735; 84484; 85025; 93005; 96361; 96374; 96375; 99285; J1940; J2405; J7030

== ENCOUNTER 2020-01-16 12:28 | Inpatient (IN) | payer MEDICARE, MEDICAID ==
[~2020-01-16] VITALS: Ht 170.2 cm; Wt 106.2 kg
[~2020-01-16 12:28] MED LIST changes: -FUROSEMIDE 40 MG/4 ML VIAL IV ONE; -LABETALOL HCL 5 MG/ML 4ML SYRINGE IV ONE; -ONDANSETRON HCL 4 MG/2 ML VIAL IV ONE; -POTASSIUM EFFERVESENT TAB 25 MEQ PO ONE; -SODIUM CHLORIDE 0.9% 1,000 ML IV ONE; -TEMA15CA91 PO; -cloNIDine HCL 0.1 MG TAB PO ONE
[2020-01-16] MEDS ORDERED: SODIUM CHLORIDE 0.9% 1,000 ML IV ONE ×2 (13:03)
[2020-01-16] MEDS ORDERED: InsuLIN REG 1unit/0.01ml Soln (100units/ml) IV ONE (13:15)
[2020-01-16] MEDS ORDERED: LABETALOL HCL 5 MG/ML 4ML SYRINGE IV ONE (13:15)
[2020-01-16 14:54] LABS: Basophils # (auto) 0.1 10 ^3/uL (0-0.2); Basophils % (auto) 0.5 % (0.0-2.0); Eosinophils # (auto) 0 10 ^3/uL (0-0.8); Eosinophils % (auto) 0.2 % (0.0-7.0); Hematocrit 32.8 % (41.0-53.0); Lymphocytes # (auto) 0.5 10 ^3/uL (0.4-5.4); Lymphocytes % (auto) 3.4 % (10.0-50.0); Mean Corpuscular Hemoglobin 30.8 pg (28.0-32.0); Mean Corpuscular Hgb Conc. 33.6 g/dL (32.0-36.0); Mean Corpuscular Volume 91.8 fL (80.0-100.0); Monocytes # (auto) 0.9 10 ^3/uL (0-1.3); Monocytes % (auto) 5.6 % (0.0-12.0); Neutrophils # (auto) 14.3 10 ^3/uL (1.6-8.6); Neutrophils % (auto) 90.3 % (37.0-80.0); Platelet Count (auto) 270 10^3/uL (140-450); Red Blood Cells 3.57 10^6/uL (4.5-5.90); Red Cell Distribution Width 15.4 % (11.8-14.3); White Blood Cell 15.8 10^3/uL (4.4-10.8)
[2020-01-16 15:15] LABS: Albumin 3.2 g/dL (3.4-5.0); Calcium 7.9 mg/dL (8.5-10.1); Potassium 3.3 mmol/L (3.5-5.1)
[2020-01-16 15:18] LABS: INR 1.11 (0.9-1.15); Partial Thromboplastin Time 31.1 sec (23.64-32.05)
[2020-01-16 15:20] LABS: Bilirubin, Total 0.8 mg/dL (0.2-1.0)
[2020-01-16 16:06] LABS: CRP High Sensitivity 13.2 mg/dL (< 0.3)
[2020-01-16] MEDS ORDERED: NITROGLYCERIN 0.4 MG SL TAB SL PRN (16:15)
[2020-01-16] MEDS ORDERED: ACETAMINOPHEN 500 MG TAB PO PRN ×3 (16:15→18:45)
[2020-01-16] MEDS ORDERED: MORPHINE SULF INJ 2 MG/ML SYRINGE 1ML IV PRN (16:15)
[2020-01-16] MEDS ORDERED: ONDANSETRON HCL 4 MG/2 ML VIAL IV PRN (17:15)
[2020-01-16] MEDS ORDERED: TEMAZEPAM 15 MG CAP PO PRN (17:15)
[2020-01-16] MEDS ORDERED: LACTULOSE 20Gm/30ML SOLN PO PRN (17:15)
[2020-01-16] MEDS ORDERED: ALBUTEROL SULF 2.5 MG/0.5ML(0.5%) NEB SOLN NEB PRN (17:15)
[2020-01-16] MEDS ORDERED: traMADol HCL 50 MG TAB PO PRN (17:15)
[2020-01-16] MEDS ORDERED: DOCUSATE SOD 100 MG CAP PO PRN (17:15)
[2020-01-16] MEDS ORDERED: DEXTROSE (50%) 50ML SYRG IV PRN (17:15)
[2020-01-16] MEDS ORDERED: TEMA15CA91 PO (18:28)
[2020-01-16] MEDS: SODIUM CHLOR 0.9% PF (SALINE LOCK) 10ML VIAL/SYR IV SCH (21:30)
[2020-01-16] MEDS: CLINDAMYCIN 600MG IV 50 ML IV SCH (21:30)
[2020-01-16] MEDS: traZODone HCL 50 MG TAB PO SCH (21:41)
[2020-01-16] MEDS: cloNIDine HCL 0.1 MG TAB PO SCH (21:41)
[2020-01-16] MEDS: PREGABALIN 25 MG CAP PO SCH (21:44)
[2020-01-16] MEDS: METOPROLOL TARTRATE 50 MG TAB PO SCH (21:44)
[2020-01-16] MEDS: CALCIUM ACETATE 667 MG CAP PO SCH (21:44)
[2020-01-16] MEDS: ACCU-CHEK COMFORT CURVE STRIP VI SCH (21:45)
[2020-01-16] MEDS: InsuLIN REG 1unit/0.01ml Soln (100units/ml) SC SCH (21:45)
[2020-01-16] MEDS: METOCLOPRAMIDE HCL 10 MG TAB PO SCH (21:45)
[2020-01-16] MEDS ORDERED: Docusate Sodium 250 MG PO SCH (22:00)
[2020-01-17 03:43] VITALS: BP 145/70
[2020-01-17] MEDS: METOCLOPRAMIDE HCL 10 MG TAB PO SCH ×3 (06:00→22:49)
[2020-01-17] MEDS: CALCIUM ACETATE 667 MG CAP PO SCH ×3 (06:07→22:49)
[2020-01-17] MEDS: ACCU-CHEK COMFORT CURVE STRIP VI SCH ×4 (06:10→22:00)
[2020-01-17] MEDS: InsuLIN REG 1unit/0.01ml Soln (100units/ml) SC SCH ×4 (06:10→23:04)
[2020-01-17] MEDS: SODIUM CHLOR 0.9% PF (SALINE LOCK) 10ML VIAL/SYR IV SCH ×3 (06:10→22:44)
--- NOTE | 2020-01-17 06:10 | NUR ---
MRSA swab sent, belongings sheet placed in chart.
[2020-01-17] MEDS: CLINDAMYCIN 600MG IV 50 ML IV SCH ×3 (06:15→22:44)
--- NOTE | 2020-01-17 07:30 | NUR ---
Opening Shift Note Assumed care of patient, who is alert and oriented x4. Respirations are even and unlabored. On oxygen at 4 LPM via nasal cannula. No S/S of distress/SOB or pain. Patient has hearing aids on but is still very hard of hearing. Bed is low, locked with 2x side rails up. Call light is within reach. Instructed on POC and to call for assist PRN, will continue to monitor for changes Q1hr and PRN.
[2020-01-17 08:02] LABS: Basophils # (auto) 0.1 10 ^3/uL (0-0.2); Basophils % (auto) 0.6 % (0.0-2.0); Eosinophils # (auto) 0.3 10 ^3/uL (0-0.8); Eosinophils % (auto) 1.7 % (0.0-7.0); Hematocrit 30.1 % (41.0-53.0); Mean Corpuscular Hemoglobin 30.4 pg (28.0-32.0); Mean Corpuscular Hgb Conc. 33.3 g/dL (32.0-36.0); Mean Corpuscular Volume 91.5 fL (80.0-100.0); Monocytes # (auto) 0.7 10 ^3/uL (0-1.3); Monocytes % (auto) 4.4 % (0.0-12.0); Neutrophils # (auto) 13.8 10 ^3/uL (1.6-8.6); Neutrophils % (auto) 87.3 % (37.0-80.0); Platelet Count (auto) 266 10^3/uL (140-450); Red Blood Cells 3.29 10^6/uL (4.5-5.90); Red Cell Distribution Width 15.5 % (11.8-14.3); White Blood Cell 15.8 10^3/uL (4.4-10.8)
[2020-01-17 08:18] LABS: Albumin 2.8 g/dL (3.4-5.0); Calcium 7.7 mg/dL (8.5-10.1); Potassium 3.1 mmol/L (3.5-5.1)
[2020-01-17 08:27] LABS: BUN/Creatinine Ratio 5.3; Bilirubin, Total 0.7 mg/dL (0.2-1.0); Total Protein 7.9 g/dL (6.4-8.2)
[2020-01-17] MEDS ORDERED: POTASSIUM CHL 20 Meq TABLET PO ONE (08:30)
[2020-01-17 09:00] VITALS: BP 136/68
[2020-01-17] MEDS: ASPirin 81 mg TAB PO SCH (09:55)
[2020-01-17] MEDS: PANTOPRAZOLE 40 MG TAB PO SCH (09:55)
[2020-01-17] MEDS: SERTRALINE HCL 50 MG TAB PO SCH (09:56)
[2020-01-17] MEDS: levoFLOXacin 250MG 50 ML IV SCH (09:56)
[2020-01-17] MEDS: FUROSEMIDE 40 MG/4 ML VIAL IV SCH (09:56)
[2020-01-17] MEDS: METOPROLOL TARTRATE 50 MG TAB PO SCH ×2 (09:57→22:48)
[2020-01-17] MEDS ORDERED: LISINOPRIL 20 MG TAB PO SCH (10:00)
[2020-01-17] MEDS: ASCORBIC ACID 1,000 MG TAB PO SCH (10:00)
[2020-01-17] MEDS ORDERED: NIFEdipine ER 30 MG TAB PO SCH (10:00)
[2020-01-17] MEDS ORDERED: NITROGLYCERIN 0.2MG/HR TOPICAL PATCH TD SCH (10:00)
[2020-01-17] MEDS ORDERED: CHOLECALCIFEROL (VITD3) 1,000UNIT=25mCg TAB PO SCH (10:00)
[2020-01-17] MEDS ORDERED: ASPirin-EC 81 mg tab PO SCH (10:00)
[2020-01-17] MEDS ORDERED: ZINC SULFATE 220mg CAP or TAB PO SCH (10:00)
[2020-01-17] MEDS ORDERED: INSULIN LANTUS (GLARGINE) 1 /0.01ml (100units/ml) SC SCH (10:00)
[2020-01-17] MEDS: ENOXAPARIN SOD 40 MG/0.4 ML SYRINGE SC SCH (10:05)
--- NOTE | 2020-01-17 13:01 | NUR ---
Respiratory culture Sputum collected and sent to lab.
[2020-01-17] MEDS: cloNIDine HCL 0.1 MG TAB PO SCH ×2 (13:41→22:47)
[2020-01-17 14:48] VITALS: BP 121/88
[2020-01-17] MEDS ORDERED: MAGNESIUM SULFATE 1GM/100ML 100 ML IV ONE (15:30)
[2020-01-17 17:25] VITALS: BP 128/75
[2020-01-17 17:27] VITALS: BP 127/72
[2020-01-17 22:00] VITALS: BP 127/70
[2020-01-17] MEDS: traZODone HCL 50 MG TAB PO SCH (22:48)
[2020-01-17] MEDS: PREGABALIN 25 MG CAP PO SCH (22:49)
[2020-01-18 05:30] VITALS: BP 121/65
[2020-01-18] MEDS: SODIUM CHLOR 0.9% PF (SALINE LOCK) 10ML VIAL/SYR IV SCH ×3 (06:00→22:55)
[2020-01-18] MEDS: CLINDAMYCIN 600MG IV 50 ML IV SCH ×3 (06:30→22:55)
[2020-01-18 06:31] LABS: Basophils # (auto) 0.2 10 ^3/uL (0-0.2); Basophils % (auto) 1.3 % (0.0-2.0); Eosinophils # (auto) 0.4 10 ^3/uL (0-0.8); Eosinophils % (auto) 3.1 % (0.0-7.0); Hematocrit 28.3 % (41.0-53.0); Hemoglobin 9.5 g/dL (13.5-17.5); Lymphocytes # (auto) 1.3 10 ^3/uL (0.4-5.4); Lymphocytes % (auto) 11.6 % (10.0-50.0); Mean Corpuscular Hemoglobin 30.4 pg (28.0-32.0); Mean Corpuscular Hgb Conc. 33.7 g/dL (32.0-36.0); Mean Corpuscular Volume 90.4 fL (80.0-100.0); Monocytes # (auto) 0.7 10 ^3/uL (0-1.3); Monocytes % (auto) 6.1 % (0.0-12.0); Neutrophils % (auto) 77.9 % (37.0-80.0); Nucleated Red Blood Cells % 0.2 %; Platelet Count (auto) 207 10^3/uL (140-450); Red Blood Cells 3.13 10^6/uL (4.5-5.90); Red Cell Distribution Width 15.6 % (11.8-14.3); White Blood Cell 11.5 10^3/uL (4.4-10.8)
[2020-01-18] MEDS: CALCIUM ACETATE 667 MG CAP PO SCH ×3 (06:44→22:55)
[2020-01-18] MEDS: METOCLOPRAMIDE HCL 10 MG TAB PO SCH ×3 (06:45→22:55)
[2020-01-18] MEDS: ACCU-CHEK COMFORT CURVE STRIP VI SCH ×4 (06:45→23:09)
[2020-01-18] MEDS: InsuLIN REG 1unit/0.01ml Soln (100units/ml) SC SCH ×4 (06:46→23:30)
[2020-01-18 06:50] LABS: Chloride 99 mmol/L (98-107); Potassium 4.1 mmol/L (3.5-5.1); Sodium 130 mmol/L (136-145)
[2020-01-18 06:58] LABS: Anion Gap 11 (5-15); BUN/Creatinine Ratio 5.9; Blood Urea Nitrogen 47 mg/dL (7-18); Calcium 7.3 mg/dL (8.5-10.1); Carbon Dioxide 20 mmol/L (21-32); GFR African American 9 mL/min; GFR Non-African American 7 mL/min; Glucose 75 mg/dL (74-106); Magnesium 2.2 mg/dL (1.6-2.6)
[2020-01-18] MEDS ORDERED: SODIUM CHL 0.9% 1000 ML BAG XX ONE (07:00)
--- NOTE | 2020-01-18 07:50 | NUR ---
OPENING SHIFT NOTE: PATIENT AWAKE IN CHAIR. PATIENT HARD OF HEARING, ABLE TO COMMUNICATE EFFECTIVELY, AND USE COMMUNICATION BOARD. UPDATED ON PLAN OF CARE. A/OX4. RESPIRATIONS EVEN AND UNLABORED. DENIES ANY PAIN OR DISCOMFORT AT THIS TIME. WILL CONTINUE TO MONITOR.
[2020-01-18 09:00] VITALS: BP 146/62
--- NOTE | 2020-01-18 09:12 | NUR ---
CALL FROM FAMILY JAIME, PASSWORD RECEIVED. UPDATED ON PLAN OF CARE.
[2020-01-18] MEDS: PANTOPRAZOLE 40 MG TAB PO SCH (10:00)
[2020-01-18] MEDS: ENOXAPARIN SOD 40 MG/0.4 ML SYRINGE SC SCH (10:06)
[2020-01-18] MEDS: INSULIN LANTUS (GLARGINE) 1 /0.01ml (100units/ml) SC SCH (10:06)
[2020-01-18] MEDS: LISINOPRIL 10 MG TAB PO SCH (10:07)
[2020-01-18] MEDS: ASCORBIC ACID 1,000 MG TAB PO SCH (10:07)
[2020-01-18] MEDS: SERTRALINE HCL 50 MG TAB PO SCH (10:07)
[2020-01-18] MEDS: METOPROLOL TARTRATE 50 MG TAB PO SCH ×2 (10:08→22:55)
[2020-01-18] MEDS: cloNIDine HCL 0.1 MG TAB PO SCH ×2 (10:08→22:55)
[2020-01-18] MEDS: ASPirin 81 mg TAB PO SCH (10:09)
[2020-01-18] MEDS: FUROSEMIDE 40 MG/4 ML VIAL IV SCH (10:09)
[2020-01-18] MEDS: levoFLOXacin 250MG 50 ML IV SCH (10:09)
[2020-01-18 14:00] VITALS: BP 124/50
--- NOTE | 2020-01-18 16:58 | NUR ---
BM: PATIENT ABLE TO TRANSFER TO COMMODE INDEPENDENTLY, BUT UNABLE TO WIPE SELF. THIS RN CLEANED PATIENT X2 AFTER NEAR INCONTINENCE, LARGE LIQUID BROWN BM.
--- NOTE | 2020-01-18 16:59 | NUR ---
PATIENT WISHING TO AMA: JAIME CONTACTED AND WILL NOT STUDENT WORKER PATIENT UNTIL MEDICALLY CLEARED. PATIENT UNDERSTOOD, THIS RN UTILIZING COMMUNICATION BOARD.
[2020-01-18 17:00] VITALS: BP 143/74
--- NOTE | 2020-01-18 19:10 | NUR ---
CARE ENDORSED TO NOC RN.
[2020-01-18] MEDS ORDERED: EPOETIN ALFA 4,000 UNIT/ML VL SC ONE (21:00)
[2020-01-18 22:00] VITALS: BP 141/60
[2020-01-18] MEDS: traZODone HCL 50 MG TAB PO SCH (23:15)
[2020-01-18] MEDS: PREGABALIN 25 MG CAP PO SCH (23:17)
[2020-01-19 05:00] VITALS: BP 110/67
[2020-01-19] MEDS: MORPHINE SULF INJ 2 MG/ML SYRINGE 1ML IV PRN ×2 (06:02→20:33)
[2020-01-19] MEDS: CLINDAMYCIN 600MG IV 50 ML IV SCH ×3 (06:03→22:00)
[2020-01-19] MEDS: SODIUM CHLOR 0.9% PF (SALINE LOCK) 10ML VIAL/SYR IV SCH ×3 (06:03→22:00)
[2020-01-19] MEDS: CALCIUM ACETATE 667 MG CAP PO SCH ×3 (06:03→22:00)
[2020-01-19] MEDS: ACCU-CHEK COMFORT CURVE STRIP VI SCH ×4 (06:04→22:00)
[2020-01-19] MEDS: METOCLOPRAMIDE HCL 10 MG TAB PO SCH ×3 (06:04→22:00)
[2020-01-19] MEDS: InsuLIN REG 1unit/0.01ml Soln (100units/ml) SC SCH ×4 (06:05→22:00)
[2020-01-19 09:00] VITALS: BP 154/75
[2020-01-19] MEDS: FUROSEMIDE 40 MG/4 ML VIAL IV SCH (09:45)
[2020-01-19] MEDS: levoFLOXacin 250MG 50 ML IV SCH (09:45)
[2020-01-19] MEDS: ASPirin 81 mg TAB PO SCH (09:45)
[2020-01-19] MEDS: METOPROLOL TARTRATE 50 MG TAB PO SCH ×2 (09:46→22:00)
[2020-01-19] MEDS: SERTRALINE HCL 50 MG TAB PO SCH (09:47)
[2020-01-19] MEDS: PANTOPRAZOLE 40 MG TAB PO SCH (09:47)
[2020-01-19] MEDS: cloNIDine HCL 0.1 MG TAB PO SCH ×2 (09:47→22:00)
[2020-01-19] MEDS: LISINOPRIL 10 MG TAB PO SCH (09:48)
[2020-01-19] MEDS: ENOXAPARIN SOD 40 MG/0.4 ML SYRINGE SC SCH (09:48)
[2020-01-19] MEDS: INSULIN LANTUS (GLARGINE) 1 /0.01ml (100units/ml) SC SCH (09:51)
[2020-01-19] MEDS ORDERED: ASCORBIC ACID 500 MG TAB PO SCH (10:00)
--- NOTE | 2020-01-19 11:30 | NUR ---
ABG ON ROOM AIR COMPLETED.
--- NOTE | 2020-01-19 12:35 | NUR ---
AFTERNOON BP: 175/74 MD Mary TAN MADE AWARE. ORDER FOR O.2 CLONIDINE P.O Q6HR RECEIVED
[2020-01-19] MEDS ORDERED: cloNIDine HCL 0.1 MG TAB PO PRN (12:45)
[2020-01-19 13:00] VITALS: BP 175/74
--- NOTE | 2020-01-19 14:20 | NUR ---
BP RE-ASSESSED 149/71MMG.
[2020-01-19 15:05] VITALS: BP 120/52
--- NOTE | 2020-01-19 15:06 | NUR ---
BP RE-ASSESSED 120/52MMHG.
[2020-01-19 17:00] VITALS: BP 113/63
--- NOTE | 2020-01-19 19:12 | NUR ---
CARE ENDORSED TO NOC RN.
--- NOTE | 2020-01-19 19:50 | NUR ---
Opening Shift Note Assumed care of patient, awake, AAOx4. Patient extremely hard of hearing, communication board at bedside. On 4L oxygen via nasal cannula. Ambulatory to BSC. No S/S of distress/SOB. Bed in lowest locked position, side rails up x2, call light within reach. Instructed on POC and to call for assist PRN, will continue to monitor for changes Q1hr and PRN.
[2020-01-19] MEDS: traZODone HCL 50 MG TAB PO SCH (22:00)
[2020-01-19] MEDS: PREGABALIN 25 MG CAP PO SCH (22:00)
[2020-01-20] MEDS: CLINDAMYCIN 600MG IV 50 ML IV SCH (06:00)
[2020-01-20] MEDS: METOCLOPRAMIDE HCL 10 MG TAB PO SCH ×2 (06:00→14:00)
[2020-01-20] MEDS: CALCIUM ACETATE 667 MG CAP PO SCH ×2 (06:00→14:00)
[2020-01-20] MEDS: SODIUM CHLOR 0.9% PF (SALINE LOCK) 10ML VIAL/SYR IV SCH (06:00)
[2020-01-20] MEDS: ACCU-CHEK COMFORT CURVE STRIP VI SCH ×3 (07:00→17:00)
[2020-01-20] MEDS: InsuLIN REG 1unit/0.01ml Soln (100units/ml) SC SCH ×3 (07:00→17:00)
[2020-01-20 08:00] VITALS: BP 151/87
[2020-01-20 09:00] VITALS: BP 151/87
[2020-01-20] MEDS: METOPROLOL TARTRATE 50 MG TAB PO SCH (10:00)
[2020-01-20] MEDS ORDERED: PIPERACILLIN-TAZOB 3.375GM 100 ML IV ONE (10:45)
[2020-01-20] MEDS: ASPirin 81 mg TAB PO SCH (10:52)
[2020-01-20] MEDS: FUROSEMIDE 40 MG/4 ML VIAL IV SCH (10:52)
[2020-01-20] MEDS: cloNIDine HCL 0.1 MG TAB PO SCH (10:54)
[2020-01-20] MEDS: PANTOPRAZOLE 40 MG TAB PO SCH (10:55)
[2020-01-20] MEDS: LISINOPRIL 10 MG TAB PO SCH (10:55)
[2020-01-20] MEDS: SERTRALINE HCL 50 MG TAB PO SCH (10:56)
[2020-01-20] MEDS: ENOXAPARIN SOD 40 MG/0.4 ML SYRINGE SC SCH (10:56)
[2020-01-20] MEDS: INSULIN LANTUS (GLARGINE) 1 /0.01ml (100units/ml) SC SCH (12:05)
[2020-01-20] MEDS ORDERED: CIPR500T4 PO (12:33)
[2020-01-20] MEDS ORDERED: CEPH-37 PO (12:33)
[2020-01-20 13:50] VITALS: BP 150/74
--- NOTE | 2020-01-20 14:30 | NUR ---
Assessment Patient is a 59-year-old male who is alert. Assessment was completed with patient sister Vicki . Per Vicki prior to admission patient lived home with her and family and functioned with assistance. Per Vicki family helps patient with his ADLs. Per Vicki patient has a walker for home use. Per Vicki patient will return to his prior living arrangements post discharge and family will transport him home. Advised Vikci patient has a social service consult for home oxygen. Informed Vicki clinical information will be faxed [facility], [place]. Informed Vicki she has a right to participate in all discharge planning. Vicki verbalized understanding and agreed to discharge plan. Faxed clinical information to [facility], [place] requesting to deliver home oxygen to bedside. Addendum: 01/20/20 at 1431 by RONY RANGEL Amended: Links added.
--- NOTE | 2020-01-20 15:13 | NUR ---
re-assessment Per ss consult [facility] for safety, PT, medication management, vitals. Patient has been given a list of medicare providers. Patient has signed for [facility]. MD order has been sent to [place]. Per Ya service will start on 01/22/2020. Addendum: 01/23/20 at 1415 by Sondra Elaine Amended: Links added.
--- NOTE | 2020-01-20 15:20 | NUR ---
D/C planning Per Madina with [facility] portable oxygen will be deliver to bedside at 16:00.
[2020-01-20 16:33] VITALS: BP 158/80
--- NOTE | 2020-01-20 16:40 | NUR ---
oxygen delivered. oxygen tank works well. educated patient on oxygen use and safety.
[2020-01-20 17:00] VITALS: BP 158/80
--- NOTE | 2020-01-20 17:44 | NUR ---
Discharge instructions given as ordered. Encourage to follow up with PMD as instructed. All questions and concerns addressed. Patient verbalized understanding. Medication reconciliation form completed and copy given to patient. Home medications held in Pharmacy returned to patient, and needed vaccines given. IV removed with catheter intact, pressure dressing applied. Telemetry unit returned to ICU. Patient taken to vehicle via wheelchair with all personal belongings, accompanied by staff and family member. No distress noted at time of departure. Family educated on oxygen use and care. Family/patient acknowledged understanding.
== END 2020-01-20 17:48 | disposition home health service (06) | DRG 871 ==
LOC: EDBD 12:28 → ER 12:28 → TELE 12:29 → TELE-WESTW 01-17 03:15
PROVIDERS: ADMIT Internal Medicine; ATTEND Internal Medicine
PROC: 5A1D70Z Performance of Urinary Filtration, Intermittent, Less than 6 Hours Per Day (ICD-10-PCS; principal; 2020-01-18)
DX: A41.9 Sepsis, unspecified organism (principal); I21.A1 Myocardial infarction type 2; N18.6 End stage renal disease; I50.33 Acute on chronic diastolic (congestive) heart failure; J15.6 Pneumonia due to other Gram-negative bacteria; J69.0 Pneumonitis due to inhalation of food and vomit; J96.01 Acute respiratory failure with hypoxia; E87.1 Hypo-osmolality and hyponatremia; I13.2 Hypertensive heart and chronic kidney disease with heart failure and with stage 5 chronic kidney disease, or end stage renal disease; E11.65 Type 2 diabetes mellitus with hyperglycemia; E66.9 Obesity, unspecified; E87.6 Hypokalemia; D63.1 Anemia in chronic kidney disease; E11.22 Type 2 diabetes mellitus with diabetic chronic kidney disease; H91.90 Unspecified hearing loss, unspecified ear; Z80.1 Family history of malignant neoplasm of trachea, bronchus and lung; Z99.2 Dependence on renal dialysis; Z79.4 Long term (current) use of insulin; Z82.49 Family history of ischemic heart disease and other diseases of the circulatory system; Z83.3 Family history of diabetes mellitus; Z86.73 Personal history of transient ischemic attack (TIA), and cerebral infarction without residual deficits; Z68.29 Body mass index [BMI] 29.0-29.9, adult; Z88.2 Allergy status to sulfonamides; Z20.828 Contact with and (suspected) exposure to other viral communicable diseases
CPT/HCPCS: 36415; 36600; 71045; 80048; 80053; 80061; 82550; 82728; 82805; 82962; 83036; 83615; 83735; 83880; 84443; 84484; 85025; 85379; 85610; 85652; 85730; 86141; 87040; 87070; 87077; 87081; 87186; 87205; 90935; 93005; 93306; 93970; 96374; 99291; G0378; J1642; J1815; J2543; J3490

== ENCOUNTER 2020-09-05 11:18 | Inpatient (IN) | payer MEDICARE, MEDICAID ==
[~2020-09-05] VITALS: Ht 170.2 cm; Wt 99.0 kg
[~2020-09-05 11:18] MED LIST changes: +CEPH-37 PO; +CIPR500T4 PO; -DOCU250C3 PO; +DOCU250C4 PO; +FOSI1TAB PO; -FOSI20TA3 PO; -FOSI40TA4 PO; -OME20T PO; +TEMA15CA2 PO
[2020-09-05 12:16] LABS: Basophils # (auto) 0.1 10 ^3/uL (0-0.2); Basophils % (auto) 0.8 % (0.0-2.0); Eosinophils # (auto) 0.2 10 ^3/uL (0-0.8); Hematocrit 35.4 % (41.0-53.0); Hemoglobin 11.9 g/dL (13.5-17.5); Lymphocytes # (auto) 1.3 10 ^3/uL (0.4-5.4); Lymphocytes % (auto) 12.6 % (10.0-50.0); Mean Corpuscular Hemoglobin 31.2 pg (28.0-32.0); Mean Corpuscular Hgb Conc. 33.7 g/dL (32.0-36.0); Mean Corpuscular Volume 92.6 fL (80.0-100.0); Monocytes # (auto) 0.6 10 ^3/uL (0-1.3); Monocytes % (auto) 5.8 % (0.0-12.0); Neutrophils # (auto) 7.9 10 ^3/uL (1.6-8.6); Neutrophils % (auto) 78.8 % (37.0-80.0); Platelet Count (auto) 258 10^3/uL (140-450); Red Blood Cells 3.82 10^6/uL (4.5-5.90); Red Cell Distribution Width 14.8 % (11.8-14.3)
[2020-09-05 12:27] LABS: Albumin 3.1 g/dL (3.4-5.0); Anion Gap 7 (5-15); Blood Urea Nitrogen 23 mg/dL (7-18); Calcium 7.6 mg/dL (8.5-10.1); Carbon Dioxide 29 mmol/L (21-32); Chloride 98 mmol/L (98-107); Glucose 297 mg/dL (74-106); Potassium 3.5 mmol/L (3.5-5.1); Sodium 134 mmol/L (136-145)
[2020-09-05 12:31] LABS: INR 1.08 (0.9-1.15); Partial Thromboplastin Time 28.5 sec (23.0-31.2)
[2020-09-05 12:33] LABS: Alanine Aminotransferase 22 U/L (16-61); Alkaline Phosphatase 122 U/L (45-117); Aspartate Aminotransferase 16 U/L (15-37); Bilirubin, Total 0.4 mg/dL (0.2-1.0); GFR African American 13 mL/min; GFR Non-African American 11 mL/min; Total Protein 8.5 g/dL (6.4-8.2)
[2020-09-05] MEDS ORDERED: MORPHINE SULF INJ 2 MG/ML SYRINGE 1ML IV PRN (17:15)
[2020-09-05] MEDS ORDERED: DOCUSATE SOD 100 MG CAP PO PRN (17:15)
[2020-09-05] MEDS ORDERED: NITROGLYCERIN 0.4 MG SL TAB SL PRN (17:15)
[2020-09-05] MEDS ORDERED: HYDROcodone-ACET 5/325MG TAB PO PRN (17:15)
[2020-09-05] MEDS ORDERED: ACETAMINOPHEN 500 MG TAB PO PRN (17:15)
[2020-09-05] MEDS ORDERED: DEXTROSE (50%) 50ML SYRG IV PRN (17:15)
[2020-09-05 20:47] VITALS: BP 140/73
[2020-09-05 21:48] LABS: Cholesterol 105 mg/dL (< 200)
[2020-09-05 21:50] LABS: HDL Cholesterol 42 mg/dL (40-59); LDL Cholesterol 56 mg/dL (< 100); Triglycerides 65 mg/dL (< 150)
[2020-09-05] MEDS: MORPHINE SULF INJ 2 MG/ML SYRINGE 1ML IV PRN (21:59)
[2020-09-05 22:00] VITALS: BP 140/73
[2020-09-05] MEDS: InsuLIN REG 1unit/0.01ml Soln (100units/ml) SC SCH (22:00)
[2020-09-05] MEDS: ACCU-CHEK COMFORT CURVE STRIP VI SCH (22:00)
[2020-09-05] MEDS: traZODone HCL 50 MG TAB PO SCH (22:33)
[2020-09-05] MEDS: METOPROLOL TARTRATE 50 MG TAB PO SCH (22:34)
[2020-09-05] MEDS: ATORVASTATIN 20 MG TAB PO SCH (22:34)
[2020-09-05] MEDS: CALCIUM ACETATE 667 MG CAP PO SCH (22:35)
[2020-09-06 05:00] VITALS: BP 120/61
[2020-09-06] MEDS: CALCIUM ACETATE 667 MG CAP PO SCH ×3 (06:21→17:34)
[2020-09-06] MEDS: InsuLIN REG 1unit/0.01ml Soln (100units/ml) SC SCH ×4 (06:21→21:51)
[2020-09-06] MEDS: ACCU-CHEK COMFORT CURVE STRIP VI SCH ×4 (06:21→21:52)
[2020-09-06 08:30] VITALS: BP 141/68
[2020-09-06] MEDS: ASPirin-EC 81 mg tab PO SCH (09:49)
[2020-09-06] MEDS: METOPROLOL TARTRATE 50 MG TAB PO SCH ×2 (09:49→21:52)
[2020-09-06] MEDS: MULTIPLE VITAMIN TAB PO SCH (09:50)
[2020-09-06] MEDS: NIFEdipine ER 30 MG TAB PO SCH (09:50)
[2020-09-06] MEDS: PANTOPRAZOLE 40 MG TAB PO SCH (09:50)
[2020-09-06 16:23] VITALS: BP 134/75
[2020-09-06] MEDS: HYDROcodone-ACET 10/325MG TAB PO PRN (20:21)
[2020-09-06 21:46] VITALS: BP 132/71
[2020-09-06] MEDS: traZODone HCL 50 MG TAB PO SCH (21:50)
[2020-09-06] MEDS: ATORVASTATIN 20 MG TAB PO SCH (21:51)
[2020-09-07] MEDS: HYDROcodone-ACET 10/325MG TAB PO PRN ×3 (04:05→23:01)
[2020-09-07 05:20] VITALS: BP 149/84
[2020-09-07] MEDS: ACCU-CHEK COMFORT CURVE STRIP VI SCH ×4 (06:06→21:20)
[2020-09-07] MEDS: InsuLIN REG 1unit/0.01ml Soln (100units/ml) SC SCH ×4 (06:08→21:20)
[2020-09-07 06:58] LABS: Hematocrit 35.9 % (41.0-53.0); Hemoglobin 12.5 g/dL (13.5-17.5)
[2020-09-07] MEDS ORDERED: SODIUM CHL 0.9% 1000 ML BAG XX ONE (07:00)
[2020-09-07 07:12] LABS: % Iron Saturation 27.1 % (20-55)
[2020-09-07] MEDS: CALCIUM ACETATE 667 MG CAP PO SCH ×3 (08:59→17:40)
[2020-09-07 09:00] VITALS: BP 161/81
[2020-09-07] MEDS: ASPirin-EC 81 mg tab PO SCH (09:46)
[2020-09-07] MEDS: PANTOPRAZOLE 40 MG TAB PO SCH (09:46)
[2020-09-07] MEDS: MULTIPLE VITAMIN TAB PO SCH (09:46)
[2020-09-07] MEDS: METOPROLOL TARTRATE 50 MG TAB PO SCH ×2 (09:46→21:24)
[2020-09-07] MEDS: NIFEdipine ER 30 MG TAB PO SCH (09:46)
[2020-09-07] MEDS: ONDANSETRON HCL 4 MG/2 ML VIAL IV PRN ×2 (12:13→21:20)
[2020-09-07 13:00] VITALS: BP 165/91
[2020-09-07 17:00] VITALS: BP 143/84
[2020-09-07] MEDS ORDERED: EPOETIN ALFA-EPBX 10,000 UNIT/1ML VIAL SC ONE (21:00)
[2020-09-07] MEDS: ATORVASTATIN 20 MG TAB PO SCH (21:24)
[2020-09-07] MEDS: traZODone HCL 50 MG TAB PO SCH (21:24)
[2020-09-07] MEDS: MORPHINE SULF INJ 2 MG/ML SYRINGE 1ML IV PRN (21:25)
[2020-09-07 22:00] VITALS: BP 172/71
[2020-09-08 05:00] VITALS: BP 171/79
[2020-09-08] MEDS: ACCU-CHEK COMFORT CURVE STRIP VI SCH ×4 (06:19→21:40)
[2020-09-08] MEDS: ONDANSETRON HCL 4 MG/2 ML VIAL IV PRN (06:19)
[2020-09-08] MEDS: InsuLIN REG 1unit/0.01ml Soln (100units/ml) SC SCH ×4 (06:20→21:36)
[2020-09-08 08:33] VITALS: BP 183/86
[2020-09-08] MEDS: METOPROLOL TARTRATE 50 MG TAB PO SCH ×2 (09:31→21:53)
[2020-09-08] MEDS: MULTIPLE VITAMIN TAB PO SCH (09:31)
[2020-09-08] MEDS: CALCIUM ACETATE 667 MG CAP PO SCH ×3 (09:31→18:32)
[2020-09-08] MEDS: NIFEdipine ER 30 MG TAB PO SCH (09:32)
[2020-09-08] MEDS: ASPirin-EC 81 mg tab PO SCH (09:32)
[2020-09-08] MEDS: PANTOPRAZOLE 40 MG TAB PO SCH (09:32)
[2020-09-08] MEDS: HYDROcodone-ACET 10/325MG TAB PO PRN (09:38)
[2020-09-08] MEDS ORDERED: PROMETHAZINE HCL 25 MG/ML 1ML IV ONE (10:30)
[2020-09-08] MEDS ORDERED: LABETALOL HCL 5 MG/ML 4ML SYRINGE IV PRN (10:30)
[2020-09-08] MEDS ORDERED: traMADol HCL 50 MG TAB PO PRN (12:00)
[2020-09-08] MEDS ORDERED: MORPHINE SULF INJ 2 MG/ML SYRINGE 1ML IV PRN (12:15)
[2020-09-08 12:39] VITALS: BP 170/75
[2020-09-08] MEDS: cloNIDine HCL 0.1 MG TAB PO PRN (12:55)
[2020-09-08] MEDS: traMADol HCL 50 MG TAB PO PRN ×2 (12:56→22:02)
[2020-09-08 16:39] VITALS: BP 129/75
[2020-09-08] MEDS: ATORVASTATIN 20 MG TAB PO SCH (21:39)
[2020-09-08] MEDS: traZODone HCL 50 MG TAB PO SCH (21:39)
[2020-09-08 22:26] VITALS: BP 133/74
[2020-09-09 05:14] VITALS: BP 161/84
[2020-09-09] MEDS: InsuLIN REG 1unit/0.01ml Soln (100units/ml) SC SCH ×2 (05:44→12:03)
[2020-09-09] MEDS: ACCU-CHEK COMFORT CURVE STRIP VI SCH ×2 (05:46→11:41)
[2020-09-09] MEDS: cloNIDine HCL 0.1 MG TAB PO PRN (05:51)
[2020-09-09] MEDS ORDERED: SODIUM CHL 0.9% 1000 ML BAG XX ONE (07:00)
[2020-09-09] MEDS: CALCIUM ACETATE 667 MG CAP PO SCH ×2 (08:00→12:08)
[2020-09-09 08:58] VITALS: BP 163/97
[2020-09-09] MEDS: PANTOPRAZOLE 40 MG TAB PO SCH (09:44)
[2020-09-09] MEDS: METOPROLOL TARTRATE 50 MG TAB PO SCH (09:44)
[2020-09-09] MEDS: ASPirin-EC 81 mg tab PO SCH (09:44)
[2020-09-09] MEDS: MULTIPLE VITAMIN TAB PO SCH (09:44)
[2020-09-09] MEDS: NIFEdipine ER 30 MG TAB PO SCH (09:44)
[2020-09-09 13:00] VITALS: BP 115/77
== END 2020-09-09 14:15 | disposition home health service (06) | DRG 551 ==
LOC: ER 11:18 → TELE 17:11 → TELE-CENTR 20:47
PROVIDERS: ADMIT Nurse Practitioner Acute Care; ATTEND Family Medicine
PROC: 5A1D70Z Performance of Urinary Filtration, Intermittent, Less than 6 Hours Per Day (ICD-10-PCS; principal; 2020-09-07)
DX: M47.27 Other spondylosis with radiculopathy, lumbosacral region (principal); N18.6 End stage renal disease; I13.2 Hypertensive heart and chronic kidney disease with heart failure and with stage 5 chronic kidney disease, or end stage renal disease; I50.32 Chronic diastolic (congestive) heart failure; I69.351 Hemiplegia and hemiparesis following cerebral infarction affecting right dominant side; N25.81 Secondary hyperparathyroidism of renal origin; E11.42 Type 2 diabetes mellitus with diabetic polyneuropathy; D63.8 Anemia in other chronic diseases classified elsewhere; E66.9 Obesity, unspecified; Z99.2 Dependence on renal dialysis; Z20.822 Contact with and (suspected) exposure to COVID-19; Z88.2 Allergy status to sulfonamides; Z88.8 Allergy status to other drugs, medicaments and biological substances; E11.22 Type 2 diabetes mellitus with diabetic chronic kidney disease; E78.00 Pure hypercholesterolemia, unspecified; E78.5 Hyperlipidemia, unspecified; F17.200 Nicotine dependence, unspecified, uncomplicated; H91.90 Unspecified hearing loss, unspecified ear; Z79.4 Long term (current) use of insulin; Z79.82 Long term (current) use of aspirin; Z79.899 Other long term (current) drug therapy; Z80.1 Family history of malignant neoplasm of trachea, bronchus and lung; Z82.49 Family history of ischemic heart disease and other diseases of the circulatory system; Z68.35 Body mass index [BMI] 35.0-35.9, adult; Z83.3 Family history of diabetes mellitus; G89.29 Other chronic pain; M25.551 Pain in right hip; W18.30XA Fall on same level, unspecified, initial encounter; Y93.89 Activity, other specified; Y92.000 Kitchen of unspecified non-institutional (private) residence as the place of occurrence of the external cause
CPT/HCPCS: 36415; 70450; 71045; 71101; 72125; 72131; 72192; 80053; 80061; 82728; 82962; 83036; 83540; 83550; 83735; 83880; 84484; 85014; 85018; 85025; 85610; 85730; 87081; 87426; 90935; 93005; 96372; 96374; 97116; 97163; 97530; G0378; J1642; J1815; J2405; J3490

== ENCOUNTER 2021-02-26 14:11 | Emergency (ER) | payer MEDICARE, MEDICAID ==
[~2021-02-26] VITALS: Ht 175.3 cm; Wt 103.9 kg
[~2021-02-26 14:11] MED LIST changes: -CEPH-37 PO; -CIPR500T4 PO; -DOCU250C4 PO; -DOXY-286 PO; -METH500T22 PO; -ONDA-144 PO; -TEMA15CA2 PO; -[UNRECOGNIZED DRUG - CODE] PO
[2021-02-26 16:34] VITALS: BP 108/69
== END 2021-02-26 17:33 | disposition home or self-care (01) ==
LOC: ER 14:11
DX: S81.812A Laceration without foreign body, left lower leg, initial encounter (principal); S80.12XA Contusion of left lower leg, initial encounter; I13.2 Hypertensive heart and chronic kidney disease with heart failure and with stage 5 chronic kidney disease, or end stage renal disease; E11.22 Type 2 diabetes mellitus with diabetic chronic kidney disease; N18.6 End stage renal disease; I50.9 Heart failure, unspecified; Z90.49 Acquired absence of other specified parts of digestive tract; Z88.2 Allergy status to sulfonamides; Z79.899 Other long term (current) drug therapy; W22.8XXA Striking against or struck by other objects, initial encounter; Y93.89 Activity, other specified; Y92.89 Other specified places as the place of occurrence of the external cause; Y99.8 Other external cause status

== ENCOUNTER 2022-05-25 16:24 | Inpatient (IN) | payer MEDICARE, MEDICAID ==
[~2022-05-25] VITALS: Ht 167.6 cm; Wt 74.9 kg
[~2022-05-25 16:24] MED LIST changes: -ASPI-231 PO; -DOCU-94 PO; +PANT40TA2 PO; -[UNRECOGNIZED DRUG - CODE] PO
[2022-05-25] MEDS ORDERED: NALOXONE HCL 0.4 MG/ML VIAL IV ONE (16:45)
[2022-05-25 19:12] LABS: Basophils # (auto) 0.1 10 ^3/uL (0-0.2); Eosinophils # (auto) 0.2 10 ^3/uL (0-0.8); Eosinophils % (auto) 2.3 % (0.0-7.0); Hematocrit 32.6 % (41.0-53.0); Hemoglobin 10.7 g/dL (13.5-17.5); Lymphocytes # (auto) 0.6 10 ^3/uL (0.4-5.4); Lymphocytes % (auto) 7.9 % (10.0-50.0); Mean Corpuscular Hemoglobin 29.7 pg (28.0-32.0); Mean Corpuscular Hgb Conc. 32.8 g/dL (32.0-36.0); Mean Corpuscular Volume 90.6 fL (80.0-100.0); Monocytes # (auto) 0.5 10 ^3/uL (0-1.3); Monocytes % (auto) 6.2 % (0.0-12.0); Neutrophils # (auto) 6.3 10 ^3/uL (1.6-8.6); Neutrophils % (auto) 82.6 % (37.0-80.0); Red Blood Cells 3.59 10^6/uL (4.5-5.90); Red Cell Distribution Width 18.8 % (11.8-14.3); White Blood Cell 7.6 10^3/uL (4.4-10.8)
[2022-05-25 19:30] LABS: Albumin 3.1 g/dL (3.4-5.0); Anion Gap 10 (5-15); Blood Alcohol < 3.0 mg/dL (0-5); Blood Urea Nitrogen 66 mg/dL (7-18); Calcium 8.4 mg/dL (8.5-10.1); Carbon Dioxide 26 mmol/L (21-32); Chloride 100 mmol/L (98-107); Glucose 193 mg/dL (74-106); Potassium 4.9 mmol/L (3.5-5.1); Sodium 136 mmol/L (136-145)
[2022-05-25 19:33] LABS: Alanine Aminotransferase 33 U/L (16-61); Alkaline Phosphatase 354 U/L (45-117); Aspartate Aminotransferase 26 U/L (15-37); BUN/Creatinine Ratio 8.4; Bilirubin, Total 0.8 mg/dL (0.2-1.0); GFR African American 9 mL/min; GFR Non-African American 7 mL/min; Total Protein 8.5 g/dL (6.4-8.2)
[2022-05-25] MEDS ORDERED: levoFLOXacin 500MG 100 ML IV ONE (20:00)
[2022-05-25] MEDS ORDERED: DEXTROSE (50%) 50ML SYRG IV PRN (23:30)
[2022-05-25] MEDS ORDERED: ACETAMINOPHEN 325 MG TAB PO PRN (23:30)
[2022-05-25] MEDS ORDERED: ONDANSETRON HCL 4 MG/2 ML VIAL IV PRN (23:30)
[2022-05-25] MEDS ORDERED: ALBUTEROL SULF 2.5 MG/0.5ML(0.5%) NEB SOLN NEB PRN (23:30)
[2022-05-26 05:00] VITALS: BP 155/80
[2022-05-26] MEDS: InsuLIN REG 1unit/0.01ml Soln (100units/ml) SC SCH ×4 (06:01→21:48)
[2022-05-26] MEDS: ACCU-CHEK COMFORT CURVE STRIP VI SCH ×4 (06:04→21:49)
[2022-05-26 06:40] LABS: Basophils # (auto) 0.1 10 ^3/uL (0-0.2); Eosinophils # (auto) 0.1 10 ^3/uL (0-0.8); Eosinophils % (auto) 1.8 % (0.0-7.0); Hematocrit 30.9 % (41.0-53.0); Hemoglobin 10.3 g/dL (13.5-17.5); Lymphocytes # (auto) 0.6 10 ^3/uL (0.4-5.4); Lymphocytes % (auto) 7.4 % (10.0-50.0); Mean Corpuscular Hemoglobin 30.2 pg (28.0-32.0); Mean Corpuscular Hgb Conc. 33.5 g/dL (32.0-36.0); Mean Corpuscular Volume 90.2 fL (80.0-100.0); Monocytes # (auto) 0.4 10 ^3/uL (0-1.3); Monocytes % (auto) 5.8 % (0.0-12.0); Neutrophils # (auto) 6.5 10 ^3/uL (1.6-8.6); Red Blood Cells 3.42 10^6/uL (4.5-5.90); Red Cell Distribution Width 18.7 % (11.8-14.3); White Blood Cell 7.7 10^3/uL (4.4-10.8)
[2022-05-26 06:52] LABS: Potassium 5.2 mmol/L (3.5-5.1)
[2022-05-26 06:55] LABS: Albumin 3.1 g/dL (3.4-5.0); BUN/Creatinine Ratio 8.4; Calcium 8.5 mg/dL (8.5-10.1)
[2022-05-26 06:58] LABS: Total Protein 8.4 g/dL (6.4-8.2)
[2022-05-26] MEDS: CALCIUM ACETATE 667 MG CAP PO SCH ×3 (08:00→18:00)
[2022-05-26 08:39] VITALS: BP 144/49
[2022-05-26] MEDS: cefTRIAXone 1GM/50ML D5W 50 ML IV SCH (09:00)
[2022-05-26] MEDS ORDERED: SODIUM CHL 0.9% 1000 ML BAG XX ONE (09:00)
[2022-05-26] MEDS ORDERED: cloNIDine HCL 0.1 MG TAB PO SCH (10:00)
[2022-05-26] MEDS: PANTOPRAZOLE 40 MG TAB PO SCH (10:00)
[2022-05-26] MEDS: HEPARIN SODIUM (PORCINE) 5000 UNITS/ML 1ML VIAL SC SCH ×2 (10:00→21:09)
[2022-05-26] MEDS: AZITHROMYCIN 500MG/ 250ML 250 ML IV SCH (10:00)
[2022-05-26] MEDS ORDERED: NIFEdipine ER 30 MG TAB PO SCH (10:00)
[2022-05-26] MEDS ORDERED: METOPROLOL TARTRATE 50 MG TAB PO SCH (10:00)
[2022-05-26 11:12] VITALS: BP 144/49
[2022-05-26] MEDS ORDERED: FUROSEMIDE 20 MG/2 ML VIAL IV ONE (12:30)
[2022-05-26 13:00] VITALS: BP 154/92
[2022-05-26 14:34] LABS: Cholesterol 72 mg/dL (< 200); HDL Cholesterol 32 mg/dL (40-59); LDL Cholesterol 41 mg/dL (< 100); Triglycerides 63 mg/dL (< 150)
[2022-05-26 17:24] VITALS: BP 150/83
[2022-05-26] MEDS: ATORVASTATIN 20 MG TAB PO SCH (21:08)
[2022-05-26] MEDS: cloNIDine HCL 0.1 MG TAB PO SCH (21:26)
[2022-05-26] MEDS: METOPROLOL TARTRATE 50 MG TAB PO SCH (21:28)
[2022-05-26] MEDS: HYDROcodone-ACET 5/325MG TAB PO PRN (21:30)
[2022-05-26 22:00] VITALS: BP 172/84
[2022-05-26] MEDS ORDERED: amLODIPine BESYLATE 5 MG TAB PO ONE (22:00)
[2022-05-26] MEDS: hydrALAZINE HCL 20 MG/ML VL IV PRN (22:17)
[2022-05-27 05:00] VITALS: BP 177/84
[2022-05-27] MEDS: hydrALAZINE HCL 20 MG/ML VL IV PRN (05:18)
[2022-05-27] MEDS: InsuLIN REG 1unit/0.01ml Soln (100units/ml) SC SCH ×4 (05:50→22:33)
[2022-05-27] MEDS: ACCU-CHEK COMFORT CURVE STRIP VI SCH ×4 (05:51→22:29)
[2022-05-27 06:10] LABS: BUN/Creatinine Ratio 7.7; Calcium 8.4 mg/dL (8.5-10.1); Phosphorus 5.7 mg/dL (2.5-4.90); Potassium 4.6 mmol/L (3.5-5.1)
[2022-05-27 06:30] VITALS: BP 128/89
[2022-05-27 09:07] VITALS: BP 131/45
[2022-05-27] MEDS: cefTRIAXone 1GM/50ML D5W 50 ML IV SCH (10:19)
[2022-05-27] MEDS: AZITHROMYCIN 500MG/ 250ML 250 ML IV SCH (10:20)
[2022-05-27] MEDS: ASPirin 81 mg TAB PO SCH (10:21)
[2022-05-27] MEDS: amLODIPine BESYLATE 5 MG TAB PO SCH (10:21)
[2022-05-27] MEDS: CALCIUM ACETATE 667 MG CAP PO SCH ×3 (10:21→18:55)
[2022-05-27] MEDS: NIFEdipine ER 30 MG TAB PO SCH (10:22)
[2022-05-27] MEDS: PANTOPRAZOLE 40 MG TAB PO SCH (10:22)
[2022-05-27] MEDS: METOPROLOL TARTRATE 50 MG TAB PO SCH ×2 (10:23→22:28)
[2022-05-27] MEDS: cloNIDine HCL 0.1 MG TAB PO SCH ×2 (10:23→22:26)
[2022-05-27] MEDS: HYDROcodone-ACET 5/325MG TAB PO PRN (10:24)
[2022-05-27] MEDS: FUROSEMIDE 20 MG/2 ML VIAL IV SCH (10:24)
[2022-05-27] MEDS: HEPARIN SODIUM (PORCINE) 5000 UNITS/ML 1ML VIAL SC SCH ×2 (10:25→22:32)
[2022-05-27 13:00] VITALS: BP 133/48
[2022-05-27] MEDS: SODIUM ZIRCONIUM CYCL 10 GM PAK PO SCH (16:53)
[2022-05-27 17:16] VITALS: BP 138/41
[2022-05-27 22:00] VITALS: BP 144/66
[2022-05-27] MEDS: ATORVASTATIN 20 MG TAB PO SCH (22:27)
[2022-05-28 05:00] VITALS: BP 129/63
[2022-05-28] MEDS ORDERED: SODIUM CHL 0.9% 1000 ML BAG XX ONE (05:00)
[2022-05-28 05:26] LABS: Basophils # (auto) 0.1 10 ^3/uL (0-0.2); Basophils % (auto) 1.3 % (0.0-2.0); Eosinophils # (auto) 0.1 10 ^3/uL (0-0.8); Eosinophils % (auto) 0.9 % (0.0-7.0); Hematocrit 32.6 % (41.0-53.0); Hemoglobin 10.5 g/dL (13.5-17.5); Lymphocytes # (auto) 0.5 10 ^3/uL (0.4-5.4); Lymphocytes % (auto) 6.6 % (10.0-50.0); Mean Corpuscular Hemoglobin 28.9 pg (28.0-32.0); Mean Corpuscular Hgb Conc. 32.1 g/dL (32.0-36.0); Monocytes # (auto) 0.6 10 ^3/uL (0-1.3); Monocytes % (auto) 7.6 % (0.0-12.0); Neutrophils # (auto) 6.9 10 ^3/uL (1.6-8.6); Neutrophils % (auto) 83.6 % (37.0-80.0); Red Blood Cells 3.63 10^6/uL (4.5-5.90); White Blood Cell 8.2 10^3/uL (4.4-10.8)
[2022-05-28 05:46] LABS: Potassium 5.4 mmol/L (3.5-5.1)
[2022-05-28 05:47] LABS: BUN/Creatinine Ratio 7.9; Calcium 8.4 mg/dL (8.5-10.1)
[2022-05-28] MEDS: InsuLIN REG 1unit/0.01ml Soln (100units/ml) SC SCH ×4 (06:01→22:08)
[2022-05-28] MEDS: ACCU-CHEK COMFORT CURVE STRIP VI SCH ×4 (06:03→22:04)
[2022-05-28] MEDS: CALCIUM ACETATE 667 MG CAP PO SCH ×3 (08:17→18:44)
[2022-05-28 09:00] VITALS: BP 140/52
[2022-05-28] MEDS: cefTRIAXone 1GM/50ML D5W 50 ML IV SCH (09:00)
[2022-05-28] MEDS: FUROSEMIDE 20 MG/2 ML VIAL IV SCH (09:34)
[2022-05-28] MEDS: METOPROLOL TARTRATE 50 MG TAB PO SCH ×2 (09:34→22:03)
[2022-05-28] MEDS: SODIUM ZIRCONIUM CYCL 10 GM PAK PO SCH (09:34)
[2022-05-28] MEDS: cloNIDine HCL 0.1 MG TAB PO SCH ×2 (09:34→22:02)
[2022-05-28] MEDS: ASPirin 81 mg TAB PO SCH (09:34)
[2022-05-28] MEDS: NIFEdipine ER 30 MG TAB PO SCH (09:35)
[2022-05-28] MEDS: amLODIPine BESYLATE 5 MG TAB PO SCH (09:35)
[2022-05-28] MEDS: PANTOPRAZOLE 40 MG TAB PO SCH (09:35)
[2022-05-28] MEDS: AZITHROMYCIN 500MG/ 250ML 250 ML IV SCH (10:00)
[2022-05-28] MEDS: HEPARIN SODIUM (PORCINE) 5000 UNITS/ML 1ML VIAL SC SCH ×2 (10:34→22:04)
[2022-05-28] MEDS ORDERED: AZIT500T66 PO (11:49)
[2022-05-28] MEDS ORDERED: ALBUAER3 IN (11:49)
[2022-05-28 12:50] VITALS: BP 163/84
[2022-05-28 13:43] VITALS: BP 132/65
[2022-05-28 17:24] VITALS: BP 166/76
[2022-05-28] MEDS: hydrALAZINE HCL 20 MG/ML VL IV PRN (20:29)
[2022-05-28] MEDS ORDERED: EPOETIN ALFA-EPBX 4,000 UNIT/ML VIAL SC ONE (21:00)
[2022-05-28 21:14] VITALS: BP 169/79
[2022-05-28] MEDS: ATORVASTATIN 20 MG TAB PO SCH (22:03)
[2022-05-29 05:00] VITALS: BP 139/64
[2022-05-29] MEDS: ACCU-CHEK COMFORT CURVE STRIP VI SCH (06:28)
[2022-05-29] MEDS: InsuLIN REG 1unit/0.01ml Soln (100units/ml) SC SCH (06:32)
[2022-05-29] MEDS: cefTRIAXone 1GM/50ML D5W 50 ML IV SCH (08:31)
[2022-05-29] MEDS: CALCIUM ACETATE 667 MG CAP PO SCH (08:31)
[2022-05-29 09:00] VITALS: BP 160/65
== END 2022-05-29 10:03 | disposition home or self-care (01) | DRG 193 ==
LOC: EDBD 16:24 → ER 16:24 → OVERFLOW 23:40 → WEST WING 05-26 03:10
PROVIDERS: ADMIT Nurse Practitioner; ATTEND Nurse Practitioner
PROC: 5A1D70Z Performance of Urinary Filtration, Intermittent, Less than 6 Hours Per Day (ICD-10-PCS; 2022-05-26)
PROC: 5A1D70Z Performance of Urinary Filtration, Intermittent, Less than 6 Hours Per Day (ICD-10-PCS; principal; 2022-05-28)
DX: J18.9 Pneumonia, unspecified organism (principal); G93.41 Metabolic encephalopathy; J96.01 Acute respiratory failure with hypoxia; N18.6 End stage renal disease; G91.9 Hydrocephalus, unspecified; I13.2 Hypertensive heart and chronic kidney disease with heart failure and with stage 5 chronic kidney disease, or end stage renal disease; N25.81 Secondary hyperparathyroidism of renal origin; E11.22 Type 2 diabetes mellitus with diabetic chronic kidney disease; E11.42 Type 2 diabetes mellitus with diabetic polyneuropathy; E78.5 Hyperlipidemia, unspecified; E87.5 Hyperkalemia; F17.200 Nicotine dependence, unspecified, uncomplicated; G89.29 Other chronic pain; H91.90 Unspecified hearing loss, unspecified ear; D63.1 Anemia in chronic kidney disease; M54.50 Low back pain, unspecified; R15.9 Full incontinence of feces; I50.9 Heart failure, unspecified; Z20.822 Contact with and (suspected) exposure to COVID-19; J32.3 Chronic sphenoidal sinusitis; Z79.82 Long term (current) use of aspirin; Z79.899 Other long term (current) drug therapy; Z80.1 Family history of malignant neoplasm of trachea, bronchus and lung; Z82.49 Family history of ischemic heart disease and other diseases of the circulatory system; Z83.3 Family history of diabetes mellitus; Z86.73 Personal history of transient ischemic attack (TIA), and cerebral infarction without residual deficits; Z91.199 Patient's noncompliance with other medical treatment and regimen due to unspecified reason; Z99.2 Dependence on renal dialysis; Z88.2 Allergy status to sulfonamides; Z90.49 Acquired absence of other specified parts of digestive tract; Z79.4 Long term (current) use of insulin
CPT/HCPCS: 36415; 70450; 71045; 80048; 80053; 80061; 80320; 82962; 83036; 83735; 83880; 84100; 84443; 84484; 85025; 87040; 87081; 87340; 87426; 90935; 93005; 93306; 96365; 96375; 99291; G0378; J0696; J1642; J1815; J1956; J2405

== ENCOUNTER 2022-06-27 14:20 | Inpatient (IN) | payer MEDICARE, MEDICAID ==
[~2022-06-27] VITALS: Ht 165.1 cm; Wt 82.2 kg
[~2022-06-27 14:20] MED LIST changes: +ALBUAER3 IN; +AZIT500T66 PO
[2022-06-27 16:35] LABS: Basophils # (auto) 0.1 10 ^3/uL (0-0.2); Basophils % (auto) 1.3 % (0.0-2.0); Eosinophils # (auto) 0.1 10 ^3/uL (0-0.8); Eosinophils % (auto) 0.7 % (0.0-7.0); Hematocrit 38.8 % (41.0-53.0); Hemoglobin 13.5 g/dL (13.5-17.5); Lymphocytes # (auto) 1.1 10 ^3/uL (0.4-5.4); Lymphocytes % (auto) 13.7 % (10.0-50.0); Mean Corpuscular Hemoglobin 30.9 pg (28.0-32.0); Mean Corpuscular Hgb Conc. 34.9 g/dL (32.0-36.0); Mean Corpuscular Volume 88.6 fL (80.0-100.0); Monocytes # (auto) 0.5 10 ^3/uL (0-1.3); Monocytes % (auto) 7.1 % (0.0-12.0); Neutrophils # (auto) 5.9 10 ^3/uL (1.6-8.6); Neutrophils % (auto) 77.2 % (37.0-80.0); Nucleated Red Blood Cells % 0.1 %; Red Blood Cells 4.38 10^6/uL (4.5-5.90); Red Cell Distribution Width 17.8 % (11.8-14.3); White Blood Cell 7.7 10^3/uL (4.4-10.8)
[2022-06-27 19:31] LABS: Albumin 3.7 g/dL (3.4-5.0); Anion Gap 18 (5-15); Carbon Dioxide 22 mmol/L (21-32); Chloride 96 mmol/L (98-107); Glucose 92 mg/dL (74-106); Lipase 158 U/L (73-393); Potassium 4.8 mmol/L (3.5-5.1); Sodium 136 mmol/L (136-145)
[2022-06-27 19:38] LABS: Alanine Aminotransferase 35 U/L (16-61); Alkaline Phosphatase 141 U/L (45-117); Aspartate Aminotransferase 28 U/L (15-37); BUN/Creatinine Ratio 9.8; Bilirubin, Total < 0.1 mg/dL (0.2-1.0); GFR African American 6 mL/min; GFR Non-African American 5 mL/min
[2022-06-27 19:39] LABS: Total Protein 8.8 g/dL (6.4-8.2)
[2022-06-27] MEDS ORDERED: IOHEXOL 300 MG/ML 100ML BOTTLE IJ ONE (19:44)
[2022-06-27 19:46] LABS: Blood Urea Nitrogen 103 mg/dL (7-18)
[2022-06-27] MEDS ORDERED: LORazepam 2MG/ML-1ML VIAL IV ONE (20:00)
[2022-06-27] MEDS ORDERED: LACTATED RINGER'S 1,000 ML IV ONE (20:00)
[2022-06-27] MEDS ORDERED: hydrALAZINE HCL 20 MG/ML VL IV ONE (22:30)
[2022-06-28] MEDS ORDERED: ONDANSETRON HCL 4 MG/2 ML VIAL IV ONE (00:15)
[2022-06-28] MEDS ORDERED: HYDROcodone-ACET 5/325MG TAB PO PRN (01:30)
[2022-06-28] MEDS ORDERED: DOCUSATE SOD 100 MG CAP PO PRN (01:30)
[2022-06-28] MEDS ORDERED: ONDANSETRON HCL 4 MG/2 ML VIAL IV PRN (01:30)
[2022-06-28] MEDS ORDERED: ALUM & MAG HYDROX-SIMETH LIQ(MAALOX) 30 ML PO PRN (01:30)
[2022-06-28] MEDS ORDERED: LORazepam 0.5 MG TAB PO PRN (01:30)
[2022-06-28] MEDS ORDERED: TEMAZEPAM 15 MG CAP PO PRN (01:30)
[2022-06-28] MEDS ORDERED: MORPHINE SULFATE INJ 2 MG/ml SYRG IV PRN (01:30)
[2022-06-28] MEDS ORDERED: ACETAMINOPHEN 325 MG TAB PO PRN (01:30)
[2022-06-28 02:28] LABS: Basophils # (auto) 0.1 10 ^3/uL (0-0.2); Basophils % (auto) 1.3 % (0.0-2.0); Eosinophils # (auto) 0 10 ^3/uL (0-0.8); Eosinophils % (auto) 0.3 % (0.0-7.0); Hemoglobin 12.5 g/dL (13.5-17.5); Lymphocytes # (auto) 1.2 10 ^3/uL (0.4-5.4); Lymphocytes % (auto) 12.8 % (10.0-50.0); Mean Corpuscular Hemoglobin 30.5 pg (28.0-32.0); Mean Corpuscular Hgb Conc. 34.7 g/dL (32.0-36.0); Mean Corpuscular Volume 87.9 fL (80.0-100.0); Monocytes # (auto) 0.6 10 ^3/uL (0-1.3); Neutrophils # (auto) 7.2 10 ^3/uL (1.6-8.6); Neutrophils % (auto) 78.6 % (37.0-80.0); White Blood Cell 9.2 10^3/uL (4.4-10.8)
[2022-06-28 02:29] LABS: BUN/Creatinine Ratio 9.8; Calcium 8.6 mg/dL (8.5-10.1); Potassium 4.6 mmol/L (3.5-5.1)
[2022-06-28] MEDS: diphenhdrAMINE HCL 50 MG/1 ML VL IV ONE ×2 (05:06→05:57)
[2022-06-28] MEDS: SODIUM CHLORIDE 0.9% 1,000 ML IV SCH ×2 (05:54→18:12)
[2022-06-29] MEDS ORDERED: SODIUM CHL 0.9% 1000 ML BAG XX ONE (05:15)
[2022-06-29] MEDS ORDERED: diphenhdrAMINE HCL 50 MG/1 ML VL IV PRN (05:45)
[2022-06-29] MEDS: SODIUM CHLORIDE 0.9% 1,000 ML IV SCH (10:50)
[2022-06-29] MEDS ORDERED: hydrALAZINE HCL 25 MG TAB PO ONE (13:00)
[2022-06-29] MEDS ORDERED: METOPROLOL TARTRATE 50 MG TAB PO ONE (13:30)
[2022-06-29 18:30] VITALS: BP 168/76
[2022-06-29] MEDS ORDERED: METOPROLOL TARTRATE 50 MG TAB PO SCH (22:00)
[2022-06-29] MEDS ORDERED: cloNIDine HCL 0.1 MG TAB PO SCH (22:00)
== END 2022-06-29 19:10 | disposition home or self-care (01) | DRG 391 ==
LOC: EDBD 14:20 → ER 14:20 → TELE 06-28 01:34
PROVIDERS: ADMIT Hospitalist; ATTEND Student in an Organized Health Care Education/Training Program
PROC: 5A1D70Z Performance of Urinary Filtration, Intermittent, Less than 6 Hours Per Day (ICD-10-PCS; principal; 2022-06-29)
DX: A08.4 Viral intestinal infection, unspecified (principal); N18.6 End stage renal disease; I13.2 Hypertensive heart and chronic kidney disease with heart failure and with stage 5 chronic kidney disease, or end stage renal disease; I50.32 Chronic diastolic (congestive) heart failure; N17.9 Acute kidney failure, unspecified; E11.22 Type 2 diabetes mellitus with diabetic chronic kidney disease; D63.1 Anemia in chronic kidney disease; E66.9 Obesity, unspecified; E78.5 Hyperlipidemia, unspecified; E87.8 Other disorders of electrolyte and fluid balance, not elsewhere classified; H91.90 Unspecified hearing loss, unspecified ear; M46.46 Discitis, unspecified, lumbar region; Z20.822 Contact with and (suspected) exposure to COVID-19; Z68.30 Body mass index [BMI] 30.0-30.9, adult; Z88.2 Allergy status to sulfonamides; Z88.8 Allergy status to other drugs, medicaments and biological substances; Z80.1 Family history of malignant neoplasm of trachea, bronchus and lung; Z82.49 Family history of ischemic heart disease and other diseases of the circulatory system; Z83.3 Family history of diabetes mellitus; Z86.73 Personal history of transient ischemic attack (TIA), and cerebral infarction without residual deficits; Z99.2 Dependence on renal dialysis; Z90.49 Acquired absence of other specified parts of digestive tract
CPT/HCPCS: 36415; 71045; 74176; 80048; 80053; 83605; 83690; 84484; 85025; 87426; 87804; 90935; 93005; 96361; 96374; 96375; G0378; J2405

== ENCOUNTER 2022-10-09 19:15 | Inpatient (IN) | payer MEDICARE, MEDICAID ==
[~2022-10-09] VITALS: Ht 167.6 cm; Wt 81.3 kg
[2022-10-09] MEDS ORDERED: ONDANSETRON HCL 4 MG/2 ML VIAL IV ONE (20:15)
[2022-10-09 20:38] LABS: Basophils # (auto) 0.2 10 ^3/uL (0-0.2); Basophils % (auto) 2.4 % (0.0-2.0); Eosinophils # (auto) 0.2 10 ^3/uL (0-0.8); Eosinophils % (auto) 3.2 % (0.0-7.0); Hematocrit 35.1 % (41.0-53.0); Lymphocytes # (auto) 0.5 10 ^3/uL (0.4-5.4); Lymphocytes % (auto) 7.6 % (10.0-50.0); Mean Corpuscular Hemoglobin 30.7 pg (28.0-32.0); Mean Corpuscular Volume 90.1 fL (80.0-100.0); Monocytes # (auto) 0.4 10 ^3/uL (0-1.3); Monocytes % (auto) 6.1 % (0.0-12.0); Neutrophils # (auto) 5.4 10 ^3/uL (1.6-8.6); Neutrophils % (auto) 80.7 % (37.0-80.0); Nucleated Red Blood Cells % 0.2 %; Red Cell Distribution Width 17.4 % (11.8-14.3); White Blood Cell 6.7 10^3/uL (4.4-10.8)
[2022-10-09 21:11] LABS: Albumin 3.4 g/dL (3.4-5.0); BUN/Creatinine Ratio 6.2 (10.0-20.0); Potassium 4.2 mmol/L (3.5-5.1)
[2022-10-09 21:13] LABS: Bilirubin, Total 1.2 mg/dL (0.2-1.0); Total Protein 8.7 g/dL (6.4-8.2)
[2022-10-09] MEDS ORDERED: ONDA-144 PO (23:14)
[2022-10-10] MEDS ORDERED: ONDANSETRON ODT 4 MG TAB PO ONE (01:15)
[2022-10-10] MEDS ORDERED: LABETALOL HCL 5 MG/ML 4ML SYRINGE IV ONE (07:30)
[2022-10-10] MEDS ORDERED: hydrALAZINE HCL 20 MG/ML VL IV ONE (09:30)
[2022-10-10] MEDS ORDERED: PANTOPRAZOLE 40 MG/10 ML VIAL INJ IV ONE (10:00)
[2022-10-10] MEDS ORDERED: IPRATROPIUM BROM 0.5 MG/2.5ML INH SOL NEB PRN (10:00)
[2022-10-10] MEDS ORDERED: ONDANSETRON HCL 4 MG/2 ML VIAL IV PRN (10:00)
[2022-10-10] MEDS ORDERED: DEXTROSE (50%) 50ML SYRG IV PRN (10:00)
[2022-10-10] MEDS ORDERED: ALBUTEROL SULF 2.5 MG/0.5ML(0.5%) NEB SOLN NEB PRN (10:00)
[2022-10-10] MEDS ORDERED: ONDANSETRON HCL 4 MG/2 ML VIAL IV ONE (10:00)
[2022-10-10] MEDS ORDERED: MORPHINE SULFATE INJ 2 MG/ml SYRG IV ONE (10:00)
[2022-10-10 10:13] VITALS: BP 232/98
[2022-10-10 10:35] LABS: Basophils # (auto) 0.2 10 ^3/uL (0-0.2); Basophils % (auto) 2.3 % (0.0-2.0); Eosinophils # (auto) 0.3 10 ^3/uL (0-0.8); Eosinophils % (auto) 4.3 % (0.0-7.0); Hematocrit 33.2 % (41.0-53.0); Hemoglobin 11.2 g/dL (13.5-17.5); Lymphocytes # (auto) 0.5 10 ^3/uL (0.4-5.4); Lymphocytes % (auto) 6.5 % (10.0-50.0); Mean Corpuscular Hemoglobin 31.1 pg (28.0-32.0); Mean Corpuscular Hgb Conc. 33.7 g/dL (32.0-36.0); Mean Corpuscular Volume 92.3 fL (80.0-100.0); Monocytes # (auto) 0.5 10 ^3/uL (0-1.3); Neutrophils # (auto) 6.2 10 ^3/uL (1.6-8.6); Neutrophils % (auto) 79.9 % (37.0-80.0); Nucleated Red Blood Cells % 0.2 %; White Blood Cell 7.7 10^3/uL (4.4-10.8)
[2022-10-10 10:43] LABS: Albumin 3.2 g/dL (3.4-5.0); Calcium 8.7 mg/dL (8.5-10.1); Potassium 4.4 mmol/L (3.5-5.1)
[2022-10-10 10:50] LABS: BUN/Creatinine Ratio 6.5 (10.0-20.0); Bilirubin, Total 1.4 mg/dL (0.2-1.0); Total Protein 7.9 g/dL (6.4-8.2)
[2022-10-10] MEDS ORDERED: MORPHINE SULFATE INJ 2 MG/ml SYRG IV PRN ×2 (11:15)
[2022-10-10] MEDS ORDERED: ACETAMINOPHEN 325 MG TAB PO PRN (11:15)
[2022-10-10] MEDS ORDERED: NITROGLYCERIN 0.4 MG SL TAB SL PRN (11:15)
[2022-10-10] MEDS ORDERED: HYDROcodone-ACET 5/325MG TAB PO PRN (11:15)
[2022-10-10] MEDS: METOPROLOL TARTRATE 50 MG TAB PO SCH ×2 (11:17→22:59)
[2022-10-10] MEDS: NIFEdipine ER 30 MG TAB PO SCH (11:17)
[2022-10-10] MEDS: LISINOPRIL 20 MG TAB PO SCH (11:22)
[2022-10-10] MEDS: cloNIDine HCL 0.1 MG TAB PO SCH ×2 (11:22→22:00)
[2022-10-10] MEDS: PANTOPRAZOLE 40 MG/10 ML VIAL INJ IV SCH (11:23)
[2022-10-10] MEDS: InsuLIN REG 1unit/0.01ml Soln (100units/ml) SC SCH ×3 (11:44→23:01)
[2022-10-10] MEDS: ACCU-CHEK COMFORT CURVE STRIP VI SCH ×3 (11:46→22:00)
[2022-10-10] MEDS ORDERED: LORazepam 2MG/ML-1ML VIAL IV PRN (19:15)
[2022-10-10 20:55] LABS: Folate (Folic Acid) > 24.00 ng/mL (5.38-24)
[2022-10-10] MEDS: ATORVASTATIN 20 MG TAB PO SCH (22:57)
[2022-10-10] MEDS: HEPARIN SODIUM (PORCINE) 5000 UNITS/ML 1ML VIAL SC SCH (22:57)
[2022-10-11] MEDS: METOPROLOL TARTRATE 50 MG TAB PO SCH ×3 (00:08→22:00)
[2022-10-11 06:19] LABS: Basophils # (auto) 0.1 10 ^3/uL (0-0.2); Basophils % (auto) 1.1 % (0.0-2.0); Eosinophils # (auto) 0.4 10 ^3/uL (0-0.8); Eosinophils % (auto) 5.3 % (0.0-7.0); Hemoglobin 11.2 g/dL (13.5-17.5); Lymphocytes # (auto) 0.6 10 ^3/uL (0.4-5.4); Mean Corpuscular Hemoglobin 31.1 pg (28.0-32.0); Mean Corpuscular Hgb Conc. 33.8 g/dL (32.0-36.0); Monocytes # (auto) 0.5 10 ^3/uL (0-1.3); Monocytes % (auto) 7.1 % (0.0-12.0); Neutrophils # (auto) 5.8 10 ^3/uL (1.6-8.6); Neutrophils % (auto) 78.5 % (37.0-80.0); Nucleated Red Blood Cells % 0.2 %; Red Blood Cells 3.58 10^6/uL (4.5-5.90); Red Cell Distribution Width 17.7 % (11.8-14.3); White Blood Cell 7.4 10^3/uL (4.4-10.8)
[2022-10-11 06:40] LABS: Albumin 3.4 g/dL (3.4-5.0); BUN/Creatinine Ratio 6.5 (10.0-20.0); Calcium 9.1 mg/dL (8.5-10.1); Potassium 4.5 mmol/L (3.5-5.1)
[2022-10-11 06:43] LABS: Bilirubin, Total 1.2 mg/dL (0.2-1.0); Total Protein 8.7 g/dL (6.4-8.2)
[2022-10-11] MEDS: InsuLIN REG 1unit/0.01ml Soln (100units/ml) SC SCH ×4 (07:00→22:00)
[2022-10-11] MEDS: ACCU-CHEK COMFORT CURVE STRIP VI SCH ×4 (07:18→22:43)
[2022-10-11] MEDS: HEPARIN SODIUM (PORCINE) 5000 UNITS/ML 1ML VIAL SC SCH ×2 (11:21→22:53)
[2022-10-11] MEDS: cloNIDine HCL 0.1 MG TAB PO SCH ×2 (11:24→22:00)
[2022-10-11] MEDS: ASPirin 81 mg TAB PO SCH (11:25)
[2022-10-11] MEDS: PANTOPRAZOLE 40 MG/10 ML VIAL INJ IV SCH (11:25)
[2022-10-11] MEDS: NIFEdipine ER 30 MG TAB PO SCH (11:25)
[2022-10-11] MEDS: LISINOPRIL 20 MG TAB PO SCH (11:26)
[2022-10-11 12:55] VITALS: BP 177/57
[2022-10-11] MEDS: hydrALAZINE HCL 20 MG/ML VL IV PRN (13:20)
[2022-10-11 17:00] VITALS: BP 115/47
[2022-10-11] MEDS: LACTULOSE 20Gm/30ML SOLN PO SCH ×2 (18:13→22:55)
[2022-10-11 22:00] VITALS: BP 127/55
[2022-10-11] MEDS: ATORVASTATIN 20 MG TAB PO SCH (22:00)
[2022-10-12 05:00] VITALS: BP 147/52
[2022-10-12] MEDS: LACTULOSE 20Gm/30ML SOLN PO SCH ×4 (06:13→23:11)
[2022-10-12] MEDS: InsuLIN REG 1unit/0.01ml Soln (100units/ml) SC SCH ×4 (06:15→23:03)
[2022-10-12] MEDS: ACCU-CHEK COMFORT CURVE STRIP VI SCH ×4 (06:15→23:01)
[2022-10-12 08:25] LABS: Basophils # (auto) 0.1 10 ^3/uL (0-0.2); Basophils % (auto) 1.9 % (0.0-2.0); Eosinophils # (auto) 0.4 10 ^3/uL (0-0.8); Hematocrit 33.5 % (41.0-53.0); Hemoglobin 11.2 g/dL (13.5-17.5); Lymphocytes # (auto) 0.5 10 ^3/uL (0.4-5.4); Lymphocytes % (auto) 9.2 % (10.0-50.0); Mean Corpuscular Hemoglobin 31.3 pg (28.0-32.0); Mean Corpuscular Hgb Conc. 33.4 g/dL (32.0-36.0); Mean Corpuscular Volume 93.6 fL (80.0-100.0); Monocytes # (auto) 0.4 10 ^3/uL (0-1.3); Neutrophils # (auto) 4.5 10 ^3/uL (1.6-8.6); Neutrophils % (auto) 75.9 % (37.0-80.0); Nucleated Red Blood Cells % 0.2 %; Red Blood Cells 3.58 10^6/uL (4.5-5.90); White Blood Cell 5.9 10^3/uL (4.4-10.8)
[2022-10-12 08:30] VITALS: BP 148/64
[2022-10-12 08:33] LABS: BUN/Creatinine Ratio 6.5 (10.0-20.0); Calcium 8.4 mg/dL (8.5-10.1); Potassium 5.3 mmol/L (3.5-5.1)
[2022-10-12] MEDS ORDERED: BUMETANIDE 2.5mg/10ml (0.25 mg/ml) INJ IV ONE (09:30)
[2022-10-12] MEDS: NIFEdipine ER 30 MG TAB PO SCH (09:45)
[2022-10-12] MEDS: PANTOPRAZOLE 40 MG/10 ML VIAL INJ IV SCH (09:45)
[2022-10-12] MEDS: METOPROLOL TARTRATE 50 MG TAB PO SCH ×2 (09:45→22:53)
[2022-10-12] MEDS: cloNIDine HCL 0.1 MG TAB PO SCH ×2 (09:45→22:52)
[2022-10-12] MEDS ORDERED: SODIUM CHL 0.9% 1000 ML BAG XX ONE ×2 (09:45)
[2022-10-12] MEDS: LISINOPRIL 20 MG TAB PO SCH (09:46)
[2022-10-12 12:45] VITALS: BP 146/60
[2022-10-12] MEDS: ASPirin 81 mg TAB PO SCH (13:25)
[2022-10-12] MEDS: HEPARIN SODIUM (PORCINE) 5000 UNITS/ML 1ML VIAL SC SCH ×2 (13:25→23:01)
[2022-10-12 16:41] VITALS: BP 138/49
[2022-10-12 22:00] VITALS: BP 157/52
[2022-10-12] MEDS: ATORVASTATIN 20 MG TAB PO SCH (22:52)
[2022-10-13 05:00] VITALS: BP 157/57
[2022-10-13] MEDS: LACTULOSE 20Gm/30ML SOLN PO SCH ×3 (06:14→17:44)
[2022-10-13] MEDS: ACCU-CHEK COMFORT CURVE STRIP VI SCH ×4 (06:15→22:12)
[2022-10-13] MEDS: InsuLIN REG 1unit/0.01ml Soln (100units/ml) SC SCH ×4 (06:15→22:00)
[2022-10-13] MEDS: hydrALAZINE HCL 20 MG/ML VL IV PRN (06:16)
[2022-10-13 06:54] LABS: Basophils # (auto) 0.1 10 ^3/uL (0-0.2); Basophils % (auto) 1.2 % (0.0-2.0); Eosinophils # (auto) 0.3 10 ^3/uL (0-0.8); Eosinophils % (auto) 5.9 % (0.0-7.0); Hematocrit 31.7 % (41.0-53.0); Hemoglobin 10.8 g/dL (13.5-17.5); Lymphocytes # (auto) 0.5 10 ^3/uL (0.4-5.4); Lymphocytes % (auto) 8.9 % (10.0-50.0); Mean Corpuscular Hgb Conc. 34.1 g/dL (32.0-36.0); Monocytes # (auto) 0.5 10 ^3/uL (0-1.3); Monocytes % (auto) 9.1 % (0.0-12.0); Neutrophils % (auto) 74.9 % (37.0-80.0); Nucleated Red Blood Cells % 0.1 %; Red Blood Cells 3.48 10^6/uL (4.5-5.90); Red Cell Distribution Width 17.5 % (11.8-14.3); White Blood Cell 5.3 10^3/uL (4.4-10.8)
[2022-10-13 07:23] LABS: BUN/Creatinine Ratio 5.6 (10.0-20.0); Calcium 8.6 mg/dL (8.5-10.1); Potassium 4.1 mmol/L (3.5-5.1)
[2022-10-13 09:00] VITALS: BP 136/82
[2022-10-13] MEDS: PANTOPRAZOLE 40 MG/10 ML VIAL INJ IV SCH (10:27)
[2022-10-13] MEDS: LISINOPRIL 20 MG TAB PO SCH (10:29)
[2022-10-13] MEDS: NIFEdipine ER 30 MG TAB PO SCH (10:30)
[2022-10-13] MEDS: cloNIDine HCL 0.1 MG TAB PO SCH ×2 (10:30→22:00)
[2022-10-13] MEDS: METOPROLOL TARTRATE 50 MG TAB PO SCH ×2 (10:31→22:00)
[2022-10-13] MEDS: ASPirin 81 mg TAB PO SCH (10:31)
[2022-10-13] MEDS: HEPARIN SODIUM (PORCINE) 5000 UNITS/ML 1ML VIAL SC SCH ×2 (10:44→22:19)
[2022-10-13 14:20] VITALS: BP 154/64
[2022-10-13 14:31] LABS: Hepatitis A Ab IgM Negative; Hepatitis B Core IgM Negative; Hepatitis C Antibody Negative (Negative)
[2022-10-13 16:27] VITALS: BP 160/48
[2022-10-13 22:00] VITALS: BP 121/49
[2022-10-13] MEDS: ATORVASTATIN 20 MG TAB PO SCH (22:12)
[2022-10-14] MEDS: LACTULOSE 20Gm/30ML SOLN PO SCH ×4 (05:40→18:17)
[2022-10-14] MEDS: InsuLIN REG 1unit/0.01ml Soln (100units/ml) SC SCH ×4 (06:47→23:19)
[2022-10-14] MEDS: ACCU-CHEK COMFORT CURVE STRIP VI SCH ×4 (06:47→23:19)
[2022-10-14] MEDS ORDERED: SODIUM CHL 0.9% 1000 ML BAG XX ONE (07:00)
[2022-10-14 09:00] VITALS: BP 156/62
[2022-10-14] MEDS: PANTOPRAZOLE 40 MG/10 ML VIAL INJ IV SCH (09:55)
[2022-10-14] MEDS: cloNIDine HCL 0.1 MG TAB PO SCH ×2 (09:56→22:57)
[2022-10-14] MEDS: ASPirin 81 mg TAB PO SCH (09:56)
[2022-10-14] MEDS: METOPROLOL TARTRATE 50 MG TAB PO SCH ×2 (09:57→23:05)
[2022-10-14] MEDS: LISINOPRIL 20 MG TAB PO SCH (09:57)
[2022-10-14] MEDS: NIFEdipine ER 30 MG TAB PO SCH (09:58)
[2022-10-14] MEDS: HEPARIN SODIUM (PORCINE) 5000 UNITS/ML 1ML VIAL SC SCH ×2 (10:13→23:06)
[2022-10-14 13:00] VITALS: BP 128/56
[2022-10-14 16:31] VITALS: BP 127/49
[2022-10-14 16:56] VITALS: BP 156/62
[2022-10-14] MEDS ORDERED: EPOETIN ALFA-EPBX 4,000 UNIT/ML VIAL SC ONE (21:00)
[2022-10-14 22:00] VITALS: BP 126/48
[2022-10-14 22:32] LABS: Hematocrit 32.6 % (41.0-53.0); Hemoglobin 10.9 g/dL (13.5-17.5)
[2022-10-14] MEDS: ATORVASTATIN 20 MG TAB PO SCH (22:59)
[2022-10-15] MEDS: LACTULOSE 20Gm/30ML SOLN PO SCH ×3 (02:29→12:00)
[2022-10-15 05:00] VITALS: BP 132/38
[2022-10-15] MEDS: ACCU-CHEK COMFORT CURVE STRIP VI SCH ×2 (05:38→11:30)
[2022-10-15] MEDS: InsuLIN REG 1unit/0.01ml Soln (100units/ml) SC SCH ×2 (05:39→11:30)
[2022-10-15 08:46] VITALS: BP 142/51
[2022-10-15] MEDS: LISINOPRIL 20 MG TAB PO SCH (09:59)
[2022-10-15] MEDS: ASPirin 81 mg TAB PO SCH (10:00)
[2022-10-15] MEDS: METOPROLOL TARTRATE 50 MG TAB PO SCH (10:00)
[2022-10-15] MEDS: NIFEdipine ER 30 MG TAB PO SCH (10:01)
[2022-10-15] MEDS: PANTOPRAZOLE 40 MG/10 ML VIAL INJ IV SCH (10:01)
[2022-10-15] MEDS: cloNIDine HCL 0.1 MG TAB PO SCH (10:01)
[2022-10-15] MEDS: HEPARIN SODIUM (PORCINE) 5000 UNITS/ML 1ML VIAL SC SCH (10:21)
[2022-10-15 13:05] VITALS: BP 147/47
[2022-10-17] MEDS ORDERED: LACT10SO70 PO (13:20)
== END 2022-10-15 13:15 | disposition home or self-care (01) | DRG 441 ==
LOC: ER 19:15 → EDBD 19:15 → TELE 10-10 11:09 → TELE-WESTW 10-11 09:30 → WEST WING 10-12 14:46
PROVIDERS: ADMIT Registered Nurse; ATTEND Nurse Practitioner Acute Care
PROC: 05HB33Z Insertion of Infusion Device into Right Basilic Vein, Percutaneous Approach (ICD-10-PCS; 2022-10-10)
PROC: B54MZZA Ultrasonography of Right Upper Extremity Veins, Guidance (ICD-10-PCS; 2022-10-10)
PROC: 5A1D70Z Performance of Urinary Filtration, Intermittent, Less than 6 Hours Per Day (ICD-10-PCS; principal; 2022-10-12)
DX: K76.82 Hepatic encephalopathy (principal); G93.41 Metabolic encephalopathy; N18.6 End stage renal disease; E72.20 Disorder of urea cycle metabolism, unspecified; I13.2 Hypertensive heart and chronic kidney disease with heart failure and with stage 5 chronic kidney disease, or end stage renal disease; I16.0 Hypertensive urgency; D63.1 Anemia in chronic kidney disease; J44.9 Chronic obstructive pulmonary disease, unspecified; E11.22 Type 2 diabetes mellitus with diabetic chronic kidney disease; H91.90 Unspecified hearing loss, unspecified ear; I50.9 Heart failure, unspecified; E87.5 Hyperkalemia; F17.200 Nicotine dependence, unspecified, uncomplicated; E78.5 Hyperlipidemia, unspecified; E11.9 Type 2 diabetes mellitus without complications; Z88.2 Allergy status to sulfonamides; Z88.8 Allergy status to other drugs, medicaments and biological substances; Z99.2 Dependence on renal dialysis; Z86.73 Personal history of transient ischemic attack (TIA), and cerebral infarction without residual deficits; Z83.3 Family history of diabetes mellitus; Z82.49 Family history of ischemic heart disease and other diseases of the circulatory system; Z80.1 Family history of malignant neoplasm of trachea, bronchus and lung; Z90.49 Acquired absence of other specified parts of digestive tract
CPT/HCPCS: 36415; 70450; 71045; 76705; 80048; 80053; 80061; 80074; 82140; 82607; 82746; 82962; 83036; 84443; 84484; 85014; 85018; 85025; 85379; 87040; 87426; 87493; 90935; 93005; 93886; 95819; 96374; 96375; 97110; 97163; 97530; C9113; G0378; J1642; J1815; J2405; J3490; Q0162